=== PATIENT | female | born 1935 | race Caucasian/White ===

== ENCOUNTER → 2023-06-16 08:49 | Outpatient (REF) | payer MEDICARE, SELFPAY | LOC: RAD 08:49 | PROVIDERS: ATTENDING PHYSICIAN Nurse Practitioner | DX: Z86.73 Personal history of transient ischemic attack (TIA), and cerebral infarction without residual deficits (principal); R55 Syncope and collapse | CPT/HCPCS: 93880 ==

== ENCOUNTER → 2023-07-09 10:09 | Outpatient (REF) | payer MEDICARE, SELFPAY | LOC: RAD 10:09 | PROVIDERS: ATTENDING PHYSICIAN Specialist; FAMILY PHYSICIAN Nurse Practitioner | DX: N20.0 Calculus of kidney (principal) | CPT/HCPCS: 74018 ==

== ENCOUNTER 2023-09-14 18:58 | Emergency (ER) | payer MEDICARE, SELFPAY ==
[2023-09-14 18:59] VITALS: BP 165/99
[2023-09-14 19:22] VITALS: BMI 24.6
[2023-09-14] MEDS: ADACEL 0.5 ML IM (19:24)
--- NOTE | 2023-09-14 19:31 | ED.SKININJ ---
HPI-Injury
General
Chief Complaint: Bite
Source: patient
Exam Limitations: none
Time Seen by Provider: 09/14/23 19:18
Travel History
Have you had any contact with someone who has COVID-19?: No
Do you have any symptoms of coronavirus? Fever > 100 degrees, chills, cough, shortness of breath, sore throat, loss of taste or smell, muscle aches, or headache?: No
History of Present Illness-Injury
Initial Injury comments:
See MDM
Past History
Past History
ED Past Medical History: CVA (TIA, ICH), HTN and Other (Crohn's disease)
ED Past Surgical History: Appendectomy, Bowel resection, Cholecystectomy, Tonsilectomy and Other
Social History
Tobacco: Non-smoker
Alcohol: None
Drug: None
Personal:
Living: alone
Employment: Retired
Family History
Family History: Other (Noncontributory)
Phy Exam
Physical Exam
Physical Exam:
See MDM
Course
Orders/Labs/Results
Orders:
Orders
09/14/23 19:15
Tetanus/Diphth/Acelpertussis [Adacel] 0.5 ml IM .ONCE ONE
Vital Signs
Initial and Last Documented VS:
Initial Vital Signs
Temp Pulse Resp BP Pulse Ox
98 F 112 20 165/99 96
09/14/23 18:59 09/14/23 18:59 09/14/23 18:59 09/14/23 18:59 09/14/23 18:59
Last Documented Vital Signs
Temp Pulse Resp BP Pulse Ox
98 F 112 20 165/99 96
09/14/23 18:59 09/14/23 18:59 09/14/23 18:59 09/14/23 18:59 09/14/23 18:59
MDM/Problems Addressed
Differential Diagnosis Includes:
HPI and MDM Narrative:
88-year-old female presenting for evaluation of a snakebite. Patient lives in [place] and she heard something rustling in a bag in her kitchen. She noticed that it was a snake. She tried to grab the snake and it bit her on her left ring finger
along the dorsal aspect of the MCP. Patient denies any bleeding, swelling or numbness. Patient denies any complaints. She did catch the snake eventually and took a picture of it. They came to the emergency department because it did not appear to
look like a normal Garden snake.
I did evaluate the picture of the snake. It had a round head with round eyes. It had a color variation that was similar to northern milk snake. Given that she has no complaints, we discussed the likelihood of a nonvenomous snake and indicating
that she does not need antivenom.
Physical exam
General: Well appearing and non-toxic
HEENT: protecting airway
Neck: appears supple
CV: No evidence of cyanosis
Resp: No accessory muscle use
Abd: Non-distended
Extremities: Snakebite to dorsum of left. No oozing at the bite site
Neuro: alert
Psych: Normal affect
Skin: Intact
Problems Addressed including Acute and Chronic Conditions affecting care:
1. [Snakebite
Acuity: acute
Prognosis: stable
Details: Given no symptoms and evaluating the picture provided by the patient, the snake shows no concerning features for venomous snake. Antivenom not needed. Patient given tetanus shot
Differential Diagnosis (but not limited to): Snakebite nonvenomous, snakebite venomous
Testing considered: X-ray
Drug therapy (if applicable): OTC meds, please see d/c instruction regarding Rx drugs
Amount and/or Complexity of Data Reviewed
Clinical info obtained from: Patient
External data reviewed: N/A
Labs I independently reviewed (but not limited to): N/A
Radiology: N/A
Pulse Ox: not hypoxic
EKG independently reviewed: N/A
Licensing Specialist: N/A
Critical Care: N/A
Risk of Complication:
Social Determinants of health: Good social support
Discussed with other providers: N/A
Escalation of Care includes Admit/Obs: After being observed in the Emergency Department, pt stable for discharge.
Occasional wrong word or 'sound a like' substitutions may have occurred due to the inherent limitations of voice recognition software. Read the chart carefully and recognize, using context, where substitutions have occurred.
*Critical Care Note
Total Time (30-74mins, 75-104mins- exclusive of procedures): Not Applicable
ED Attending Note
-
Portions of this chart may have been created with voice recognition software.� Occasional wrong word or��sound alike� substitutions may have occurred due to the inherent limitations of voice recognition software.
Discharge Plan
Departure
Patient Disposition: Home (Routine Discharge)
Date of Disposition: 09/14/23
Time of Disposition: 19:41
Patient with high blood pressure during this ER visit?: Yes
Discharge Problem:
Bite, snake, non-venomous
Instructions: Snake Bite, BLOOD PRESSURE
Prescriptions:
No Action
hydrochlorothiazide 12.5 MG capsule
12.5 mg PO DAILY
famotidine 40 mg Tablet
40 mg PO HS
cyanocobalamin (vitamin B-12) [Vitamin B-12] 1,000 mcg Tablet
1,000 mcg PO MOTH
simvastatin 20 mg Tablet
20 mg PO QPM
ferrous sulfate 325 mg (65 mg iron) Tablet
325 mg PO DAILY
aspirin 81 mg Tablet,Delayed Release (Dr/Ec)
81 mg PO DAILY
acetaminophen 650 mg Tablet Extended Release
1,300 mg PO PRN PRN (Reason: pain)
Prolia 60 mg/mL Syringe
60 mg SC [id number]
therapeutic multivitamin Tablet
1 tab PO DAILY
calcium carbonate 600 mg calcium (1,500 mg) Tablet
600 mg PO DAILYPRN PRN (Reason: osteoporosis)
cholecalciferol (vitamin D3) [Vitamin D3] 25 mcg (1,000 unit) Tablet
7,000 unit PO DAILY
Activity Restrictions/Additional Instructions:
As we discussed, the snake appears to be an eastern milk snake. Given that you have no symptoms at the bite and there is no oozing to suggest envenomation, you do not require antivenom.
Watch for signs of infection: fever over 100.5', increasing pain, red streaks around wound, swelling, or increasing drainage of pus. If any of these happen, return to ED promptly.
Please return for any worsening symptoms.
You may return at any time if you have further concerns.
Please follow up with your doctor at the first available appointment, preferably this week.
Thank you for choosing [facility].
Interventions
Interventions:
*Risk Screen - Suicide Last Done: 09/14/23 18:59
*General Assessment Last Done: 09/14/23 18:59
*Neglect/Abuse Screening Last Done: 09/14/23 18:59
ED- Fall Risk Assessment Last Done: 09/14/23 19:28
*ED COVID-19 Vaccine History Last Done: 09/14/23 19:07
ED-Skin Assessment Last Done: 09/14/23 19:28
Discharge Date and Time
Print Language: GERMAN
[2023-09-14 19:39] VITALS: BP 157/76
== END 2023-09-14 19:49 | disposition home or self-care (01) ==
LOC: EMR 18:58
PROVIDERS: EMERGENCY PHYSICIAN Student in an Organized Health Care Education/Training Program; FAMILY PHYSICIAN Nurse Practitioner
DX: S61.255A Open bite of left ring finger without damage to nail, initial encounter (principal); W59.11XA Bitten by nonvenomous snake, initial encounter; I10 Essential (primary) hypertension; Z23 Encounter for immunization
CPT/HCPCS: 99283; 90471; 90715

== ENCOUNTER → 2023-09-27 16:16 | Outpatient (REF) | payer OTHER, SELFPAY | LOC: RAD 16:16 | PROVIDERS: ATTENDING PHYSICIAN Nurse Practitioner Family | DX: M79.652 Pain in left thigh (principal) | CPT/HCPCS: 73552 ==

== ENCOUNTER → 2023-11-01 09:39 | Outpatient (REF) | payer MEDICARE, SELFPAY ==
[2023-11-01 11:20] LABS: % Basophils 0.4 % (0-2); % Eosinophils 0.5 % (0-6); % Immature Granulocytes 0.3 % (0-0.5); % Lymphocytes 16.9 % (20.5-51.1); % Neutrophils 72.9 % (42.2-75.2); Absolute Lymphocytes 1.3 10^3/uL (1.2-3.4); Absolute Monocytes 0.7 10^3/uL (0.1-0.6); Absolute Neutrophils 5.6 10^3/uL (1.4-6.5); Hematocrit 42.6 % (37.0-47.0); Hemoglobin 13.3 g/dL (12.0-16.0); Mean Corp Hgb Conc. 31.2 g/dL (33.0-37.0); Mean Corpuscular Hgb 29.4 pg (27.0-31.0); Mean Platelet Volume 11.1 fL (7.4-10.4); Nucleated Red Blood Cells % 0 %; Platelet Count 199 10^3/uL (130-400); Red Blood Cell Count 4.53 10^6/uL (4.20-5.40); Red Cell Dist. Width 13.3 % (11.5-14.5); White Blood Cell Count 7.7 10^3/uL (4.8-10.8)
[2023-11-01 11:46] LABS: ALT (SGPT) 44 U/L (0-35); AST (SGOT) 46 U/L (14-36); Albumin 4.5 g/dl (3.5-5.0); Alkaline Phosphatase 87 U/L (38-126); Blood Urea Nitrogen 14 mg/dl (7-17); Calcium 10.4 mg/dl (8.4-10.2); Carbon Dioxide 29 mmol/L (22-30); Chloride 102 mmol/L (98-107); Glucose 98 mg/dl (70-99); HDL Cholesterol 60 mg/dl; LDL Cholesterol, Calculated 50 mg/dl; Potassium 3.5 mmol/L (3.5-5.1); Sodium 141 mmol/L (135-145); Total Bilirubin 0.9 mg/dl (0.2-1.3); Total Cholesterol 139 mg/dl (50-199); Total Protein 7.1 g/dl (6.3-8.2); Triglyceride 149 mg/dl (10-149); Very Low Density Lipoprotein 29 mg/dl (0-30); eGFR > 60.00
[2023-11-01 11:58] LABS: Total Iron Binding Capacity 397 ug/dl (265-497)
[2023-11-01 12:11] LABS: Vitamin D, 25-OH*** 26.9 ng/mL (30-80)
[2023-11-01 12:22] LABS: Ferritin 27.8 ng/ml (11.1-264.0)
[2023-11-01 12:25] LABS: TSH 2.56 uIU/ml (0.47-4.68)
[2023-11-01 12:45] LABS: Vitamin B12 622 pg/ml (239-931)
[2023-11-01 14:39] LABS: Lyme Antibody Screen, EIA Negative (Negative)
[2023-11-03 18:20] LABS: Ehrlichia chaffeensis IgG Ab <1:64 (<1:64); Ehrlichia chaffeensis IgM Ab < 1:16 (< 1:16)
[2023-11-03 22:50] LABS: Babesia microti IgG < 1:16 (< 1:16); Babesia microti IgM <1:20 (<1:20)
== END ==
LOC: REG 09:39
PROVIDERS: ATTENDING PHYSICIAN Physician Assistant; FAMILY PHYSICIAN Nurse Practitioner
DX: S80.862A Insect bite (nonvenomous), left lower leg, initial encounter (principal); D51.3 Other dietary vitamin B12 deficiency anemia; K50.00 Crohn's disease of small intestine without complications; L65.9 Nonscarring hair loss, unspecified; E78.2 Mixed hyperlipidemia; E55.9 Vitamin D deficiency, unspecified
CPT/HCPCS: 36415; 80053; 80061; 82306; 82607; 82728; 83550; 84443; 85025; 86618; 86666; 86753

== ENCOUNTER → 2023-12-28 09:45 | Outpatient (REF) | payer MEDICARE, SELFPAY | LOC: RAD 09:45 | PROVIDERS: ATTENDING PHYSICIAN Internal Medicine Rheumatology; FAMILY PHYSICIAN Nurse Practitioner | DX: M81.0 Age-related osteoporosis without current pathological fracture (principal) | CPT/HCPCS: 77080 ==

== ENCOUNTER → 2024-06-05 15:27 | Outpatient (REF) | payer MEDICARE, SELFPAY | LOC: RAD 15:27 | PROVIDERS: ATTENDING PHYSICIAN Nurse Practitioner | DX: J06.9 Acute upper respiratory infection, unspecified (principal) | CPT/HCPCS: 71046 ==

== ENCOUNTER 2024-06-10 19:29 | Inpatient (IN) | payer MEDICARE, SELFPAY ==
[2024-06-10 16:03] VITALS: BP 164/88
[2024-06-10 16:17] LABS: % Basophils 0.4 % (0-2); % Eosinophils 0.7 % (0-6); % Immature Granulocytes 0.3 % (0-0.5); % Monocytes 12.4 % (1.7-9.3); % Neutrophils 71.2 % (42.2-75.2); Absolute Eosinophils 0.1 10^3/uL (0-0.7); Absolute Lymphocytes 1.1 10^3/uL (1.2-3.4); Absolute Monocytes 0.9 10^3/uL (0.1-0.6); Hematocrit 38.2 % (37.0-47.0); Hemoglobin 12.5 g/dL (12.0-16.0); Mean Corp Hgb Conc. 32.7 g/dL (33.0-37.0); Mean Corpuscular Hgb 28.9 pg (27.0-31.0); Mean Corpuscular Volume 88.4 fL (81.0-99.0); Mean Platelet Volume 10.1 fL (7.4-10.4); Nucleated Red Blood Cells % 0 %; Platelet Count 236 10^3/uL (130-400); Red Blood Cell Count 4.32 10^6/uL (4.20-5.40); Red Cell Dist. Width 12.6 % (11.5-14.5); White Blood Cell Count 7.1 10^3/uL (4.8-10.8)
[2024-06-10 16:37] LABS: ALT (SGPT) 22 U/L (0-35); AST (SGOT) 27 U/L (14-36); Albumin 4.2 g/dl (3.5-5.0); Alkaline Phosphatase 70 U/L (38-126); Blood Urea Nitrogen 10 mg/dl (7-17); Calcium 9.9 mg/dl (8.4-10.2); Carbon Dioxide 32 mmol/L (22-30); Chloride 97 mmol/L (98-107); Glucose 109 mg/dl (70-99); Potassium 2.7 mmol/L (3.5-5.1); Sodium 137 mmol/L (135-145); Total Bilirubin 0.6 mg/dl (0.2-1.3); eGFR > 60.00
[2024-06-10 16:38] LABS: COVID-19 Antigen Negative (Negative)
--- NOTE | 2024-06-10 18:55 | ED.GENMED ---
History of Present Illness
General
Chief Complaint: Cold/Flu/URI Symptoms
Source: patient and family
Time Seen by Provider: 06/10/24 17:42
History of Present Illness
History of Present Illness:
This an 88-year-old female who presents with 1 week of persistent cough. Reports a little bit of shortness of breath. Was given amoxicillin has been on that for about 6 days. Patient reports her symptoms seem to be getting worse. On my
evaluation does not feel short of breath. No chest pain. No hemoptysis. Has had some low-grade temperatures. Temperature on my evaluation is 99.1. Daughter states her normal temperature is around 97.5. Daughter also states her cough just is
not getting better
Past History
Past History
ED Past Medical History: CVA (TIA, ICH), HTN and Other (Crohn's disease)
ED Past Surgical History: Appendectomy, Bowel resection, Cholecystectomy, Tonsilectomy and Other
Social History
Tobacco: Non-smoker
Alcohol: None
Drug: None
Personal:
Living: alone
Employment: Retired
Family History
Family History: Other (Noncontributory)
Phy Exam
Physical Exam
Physical Exam:
CONSTITUTIONAL Patient alert and oriented to person, place and time. Well-appearing. Vital signs reviewed.
HEAD atraumatic, normocephalic.
EYES eyelids normal to inspection, Extraocular muscles intact, Conjunctiva normal, Sclera normal.
NECK normal range of motion, Trachea midline, no jugular venous distention.
RESPIRATORY CHEST No respiratory distress noted, Chest expansion equal, few scattered rhonchi.
CARDIOVASCULAR regular rate and rhythm, Heart sounds normal.
ABDOMEN abdomen nontender, Bowel sounds normal. No distention.
BACK normal inspection, no obvious deformities
UPPER EXTREMITY range of motion normal, Motor strength normal, no cyanosis, no edema.
LOWER EXTREMITY range of motion normal, Motor strength normal, no cyanosis, no edema.
NEURO Speech normal, No focal motor deficits, Andrew coma scale 15, Memory normal, Cranial Nerves intact to screening exam.
SKIN skin warm, dry, and normal in color.
Course
Orders/Labs/Results
Orders:
Orders
06/10/24 Dinner
Regular
At Your Request: Full Participation
06/10/24 16:06
CXR2 [CR Chest - 2 Views ] Urgent
Comment:
Reason For Exam: uri s/s
06/10/24 16:11
COVID-19 Antigen Urgent
Source: Nasal Swab
Complete Blood Count/With Diff Urgent
Comprehensive Metabolic Panel Urgent
Magnesium Urgent
Comment: ADDON
Influenza A+B Rapid Molecular Urgent
SHANNAN Source: Nasal Swab
Specimen Description:
06/10/24 18:08
0.9% Sodium Chloride 500 ml [Nss] 500 ml IV BOLUS
06/10/24 18:09
Electrocardiogram (*1) Urgent
Reason for Study: Other
Other Reason for Exam: hypokalemia
06/10/24 18:10
Azithromycin 500 mg/250 ml [Zithromax Infusion] 500 mg in 250 ml IV NOW
CefTRIAXone [Rocephin] 1,000 mg IV NOW STA
Potassium Chloride 10% Elixir [KCl Elixir] 40 meq PO NOW STA
06/10/24 18:54
Lactic Acid Q4H
Comment: CANCEL 2nd LACTIC ACID IF 1st LACTIC ACID IS LESS THAN 2
Blood Culture Q30M
SHANNAN Source: Blood/Venous
Specimen Description:
Blood Culture Q30M
SHANNAN Source: Blood/Venous
Specimen Description:
06/10/24 19:04
Potassium Chloride [KCl] 40 meq 0.9% Sodium Chloride 250 ml [Nss] 250 ml IV NOW
06/10/24 19:09
Admit/Transfer Patient As Directed
Co-Sign Provider:
Level of Care: Inpatient admission
Assign to:: Medical/Surgical
Physician / Group: lenin
Diagnosis: pneumonia
Reason for Hospitalization: pneumonia
Expected length of stay greater than two midnights?: Yes
ELOS- Estimated Length of Stay in days: 2
I certify the patient meets the requirements for IP care: Yes
Code Status As Directed
Resuscitation Status: Full Code
PRN Pain Medication Management As Directed
May give lesser potent ordered pain med per pt: Yes
preference::
Protocol:: Medication orders for pain may be administered in a
manner that supports deferring to patient preference
when the pt is:
- Requesting an ordered lesser potent pain medication.
Least to most potent pain medications are defined
as: acetaminophen < NSAID < tramadol < opioids
(morphine, oxycodone, hydromorphone).
- Requesting a lesser dose of the same medication IF
ORDERED.
- Requesting a less intrusive route of administration
if both routes are prescribed by the provider (PO <
IV).
06/10/24 19:14
Code Status As Directed
Resuscitation Status: Do not resuscitate
Reached after discussion with pt or family/Healthcare POA: Yes
Respiratory Culture/Gram Stain Urgent
SHANNAN Source: Sputum
Specimen Description:
06/10/24 19:15
DNR Bracelet Application ONCE
06/10/24 20:48
Acetaminophen [Tylenol] 650 mg PO Q4HPRN PRN
Heparin 5,000 units SC Q12
06/10/24 20:48
Activity As Directed
Activity Level: As Tolerated
Vital Signs As Directed
Frequency: Per unit guidelines
DX Deep Vein Thrombosis Video Routine
06/10/24 21:36
Norovirus by PCR Urgent
SHANNAN Source: Feces/Stool
Specimen Description:
Date Specimen was Collected: 06/10/24
Time Specimen was Collected: 21:32
STOOL [C difficile Antigen & Toxins] Urgent
SHANNAN Source: Feces/Stool
Specimen Description:
Date Specimen was Collected: 06/10/24
Time Specimen was Collected: 21:32
Stool Culture Urgent
SHANNAN Source: Feces/Stool
Specimen Description:
Date Specimen was Collected: 06/10/24
Time Specimen was Collected: 21:32
06/10/24 22:00
Famotidine [Pepcid] 40 mg PO HS
06/11/24 06:00
Complete Blood Count/With Diff IN AM
Comprehensive Metabolic Panel IN AM
06/11/24 08:00
Aspirin Low Dose EC [Aspir Low (Enteric Coated)] 81 mg PO DAILY
Cholecalciferol (Vitamin D3) [VITAMIN D3 (cholecalciferol)] 187.5 mcg PO DAILY
Escitalopram Oxalate [Lexapro] 5 mg PO DAILY
Ferrous Sulfate [Feosol] 325 mg PO DAILY
06/11/24 12:00
Magnesium Oxide 250 mg PO DAILY@1200
06/11/24 18:00
Atorvastatin [Lipitor] 10 mg PO QPM
Azithromycin 500 mg/250 ml [Zithromax Infusion] 500 mg in 250 ml IV Q24H
CefTRIAXone [Rocephin] 1,000 mg IV Q24H
06/12/24 08:00
Cyanocobalamin [Vitamin B-12] 1,000 mcg PO MoTh@0800
Abnormal Lab Results
06/10/24
16:11
MCHC 32.7 L g/dL
(33.0-37.0)
Absolute Lymphs (auto) 1.1 L 10^3/uL
(1.2-3.4)
Absolute Monos (auto) 0.9 H 10^3/uL
(0.1-0.6)
Lymphocytes % 15.0 L %
(20.5-51.1)
Monocytes % 12.4 H %
(1.7-9.3)
Potassium 2.7 L* mmol/L
(3.5-5.1)
Chloride 97 L mmol/L
(98-107)
Carbon Dioxide 32 H mmol/L
(22-30)
Creatinine 0.5 L mg/dL
(0.6-1.0)
Glucose 109 H mg/dl
(70-99)
06/10/24 16:11
06/10/24 16:11
Vital Signs
Initial and Last Documented VS:
Initial Vital Signs
Temp Pulse Resp BP Pulse Ox
98.8 F 96 18 164/88 96
06/10/24 16:03 06/10/24 16:03 06/10/24 16:03 06/10/24 16:03 06/10/24 16:03
Last Documented Vital Signs
Temp Pulse Resp BP Pulse Ox
98.2 F 62 16 125/62 93
06/10/24 23:35 06/10/24 23:35 06/10/24 23:35 06/10/24 23:35 06/10/24 23:35
MDM/Problems Addressed
Differential Diagnosis Includes:
Bronchitis, viral syndrome, pneumonia, sepsis
MDM/Problems Addressed:
Pneumonia, outpatient about failure, acute severe hypokalemia, dehydration
*Radiology
Radiology exam reviewed: radiology read reviewed
*Pulse Oximetry
Patient hypoxic: no
*EKG
Interpreted by ED Provider?: Yes
Interpretation: abnormal
Rate: normal
Rhythm: sinus
QRS Pattern: poor R-wave progression
Ischemia: no ischemia
*Escapement Matcher Interpretation
Rate: normal
Interpretation: normal
Rhythm: sinus
*Critical Care Note
Total Time (30-74mins, 75-104mins- exclusive of procedures): Not Applicable
Data Reviewed
Source: patient and family
Further Testing Considered But Not Given:
Consider chest CT but suspect pneumonia by chest x-ray
Patient Management
Discussion with other providers: Hospitalist
Escalation/DeEscalation of care consider admission/obs:
88-year-old female presents with persistent cough. Found to be severely hypokalemic which is likely combination of her stool change as well as her hydrochlorothiazide. IV antibiotics. Admit given outpatient antibiotic failure. Pulse ox has
remained okay.
ED Attending Note
-
Portions of this chart may have been created with voice recognition software.� Occasional wrong word or��sound alike� substitutions may have occurred due to the inherent limitations of voice recognition software.
Discharge Plan
Departure
Patient Disposition: Admit
Date of Disposition: 06/10/24
Time of Disposition: 18:55
Admit to: Telemetry
Presentation/result/management discussed w/ accepting MD/DO: Hospitalist
Discharge Problem:
Pneumonia, Acute hypokalemia, outpatient antibiotic failure
Interventions
Interventions:
*Risk Screen - Suicide Last Done: 06/10/24 16:03
*Neglect/Abuse Screening Last Done: 06/10/24 16:03
ED- Fall Risk Assessment Last Done: 06/10/24 20:49
*ED COVID-19 Vaccine History Last Done: 06/10/24 21:20
*Nursing Disposition Last Done: 06/10/24 21:17
ED- Pulmonary Assessment Last Done: 06/10/24 20:49
Discharge Date and Time
Discharge Date/Time: 06/10/24 21:18
--- NOTE | 2024-06-10 19:13 | HPS.HSE ---
Family Physician
-
Family Physician: JOSSELYN Muniz
Chief Complaint
-
cough
History of Present Illness
88-year-old female past medical history of Crohn's disease, hypertension, CVA, GERD, thyroid goiter status post removal, iron deficiency, osteoporosis, osteoarthritis, nephrolithiasis presenting with productive cough and shortness of breath for the
past 2 and half weeks. She has been having runny nose. She denies any fevers or chills. She had loss of taste. Denies nausea or vomiting.
She started taking amoxicillin 6 days ago but was not improving so was told to come to the emergency room. She has been having severe watery diarrhea since starting the amoxicillin.
Denies smoking or alcohol use.
Medical History
Past Medical History
Past Medical History: Reports Other (Crohn's disease, hypertension, CVA, GERD, thyroid goiter status post removal, iron deficiency, osteoporosis, osteoarthritis, nephrolithiasis)
Past Surgical History: Reports Other ( Appendectomy, Bowel resection, Cholecystectomy, Tonsilectomy and Other)
Social History
Tobacco: Non-smoker
Alcohol: None
Drug: None
Family History
Family History: Not pertinent
Allergies / Home Medications
Allergies reflects when Allergies were last updated in [facility].
Home Medications with original date entered in [facility]
Allergy/Medication List:
Allergies
Allergy/AdvReac Type Severity Reaction Status Date / Time
Horse/Equine Containing Allergy LOC Verified 06/10/24 16:05
Products
iodine [Iodine] Allergy Hives Verified 06/10/24 16:05
ragweed pollen Allergy SNEEZING Verified 06/10/24 16:05
shellfish derived Allergy Hives Verified 06/10/24 16:05
Tetanus Vaccines and Toxoid Allergy Unknown Verified 06/10/24 16:05
shellfish with mayonnaise Allergy Hives Uncoded 06/10/24 16:05
Home Medications
hydrochlorothiazide 12.5 mg capsule 12.5 mg PO DAILY Blood Pressure 04/10/08
cyanocobalamin (vitamin B-12) 1,000 mcg tablet (Vitamin B-12) 1,000 mcg PO MOTH Supplement 03/11/23
famotidine 40 mg tablet 40 mg PO HS Gastrointestinal Issue 03/11/23
ferrous sulfate 325 mg (65 mg iron) tablet 325 mg PO DAILY Supplement 03/11/23
simvastatin 20 mg tablet 20 mg PO QPM High Cholesterol 03/11/23
acetaminophen 650 mg tablet,extended release 1,300 mg PO DAILYPRN PRN MILD pain 03/31/23
aspirin 81 mg tablet,delayed release 81 mg PO DAILY Blood Clot Prevention/Tx 03/31/23
denosumab 60 mg/mL subcutaneous syringe (Prolia) 60 mg SC [id number] osteoporosis 03/31/23
cholecalciferol (vitamin D3) 25 mcg (1,000 unit) tablet (Vitamin D3) 7,000 unit PO DAILY Supplement 04/05/23
therapeutic multivitamin 1 tab PO DAILY Supplement 04/05/23
escitalopram oxalate 5 mg tablet (Lexapro) 5 mg PO DAILY 06/10/24
magnesium oxide 250 mg PO DAILY 06/10/24
Review of Systems
-
History Source: Patient
A 12 point ROS was completed and negative except as noted: Yes
Constitutional: Reports No Symptoms
EENT: Reports No Symptoms
Respiratory: Reports No Symptoms
Cardiac: Reports No Symptoms
Abdomen/GI: Reports No Symptoms
: Reports No Symptoms
Musculoskeletal: Reports No Symptoms
Skin: Reports No Symptoms
Neurological: Reports No Symptoms
Endocrine: Reports No Symptoms
Hematologic/Lymphatic: Reports No Symptoms
Psych: Reports No Symptoms
Physical Exam
Vital Signs
Vital Signs
Temp Pulse Resp BP Pulse Ox
98.8 F 96 18 164/88 96
06/10/24 16:03 06/10/24 16:03 06/10/24 16:03 06/10/24 16:03 06/10/24 16:03
Physical Exam
General: Well Developed, Well Nourished and No Apparent Distress
HEENT: NormoCephalic, Moist mucous membranes and Atraumatic
Respiratory: Clear
Cardiac: S1/S2 and Regular Rhythm; No Murmur or Rub
GI: Soft, Non Tender, Non Distended and Normal Bowel Sounds; No Organomegaly
Rectal: Deferred by Provider
Musculoskeletal: No Clubbing, No Cyanosis and No Edema
Skin: No Rash
Neuro: Nonfocal/grossly intact
Laboratory Results
-
06/10/24 16:11
06/10/24 16:11
Laboratory Results
Total Bilirubin 0.6 mg/dl (0.2-1.3) 06/10/24 16:11
AST 27 U/L (14-36) 06/10/24 16:11
ALT 22 U/L (0-35) 06/10/24 16:11
Alkaline Phosphatase 70 U/L (38-126) 06/10/24 16:11
Data Reviewed
-
Lab Data: Labs Reviewed by me
Old Records: Reviewed
Impression/Plan
-
IMPRESSION:
PLAN:
# Left lower lobe pneumonia
-IV fluids given
-COVID and influenza negative
-Sputum culture
-Ceftriaxone/azithromycin
# Severe hypokalemia secondary to acute antibiotic related diarrhea
-Check stool studies, C. difficile
-Replete potassium
-Check magnesium
-Hold hydrochlorothiazide
Crohn's disease
Essential hypertension
-Hold hydrochlorothiazide
CVA
-Continue aspirin, statin
GERD
-Continue famotidine
Thyroid goiter status post removal
Iron deficiency
-Continue ferrous sulfate
Osteoporosis
Osteoarthritis
Anxiety/depression
-Continue Lexapro
DNR/DNI
DVT prophylaxis�heparin
Regular diet
[2024-06-10 19:15] LABS: Lactic Acid 1.1 mmol/L (0.7-2.0)
[2024-06-10] MEDS: NSS 500 IV (19:22)
[2024-06-10] MEDS: ROCEPHIN 1000 MG IV (19:23)
[2024-06-10] MEDS: ZITHROMAX INFUSION 250 IV (19:25)
[2024-06-10] MEDS: KCL ELIXIR 40 MEQ PO (19:27)
[2024-06-10 20:34] LABS: Magnesium 1.9 mg/dl (1.6-2.3)
[2024-06-10 20:55] VITALS: BP 159/83; BMI 24.5
[2024-06-10] MEDS: ZITHROMAX INFUSION IV (21:25)
[2024-06-10] MEDS: HEPARIN 5000 UNITS SC (22:09)
[2024-06-10] MEDS: PEPCID 40 MG PO (22:09)
[2024-06-10] MEDS: KCL 270 MEQ IV (22:18)
--- NOTE | 2024-06-10 22:44 | TRANSFER ---
Received patient from ED via stretcher; Medsurg order> afebrile, HR 81, RR 16, BP 148/49, pox 96% room air. No c/o pain. AAOx3. IV Abx infusing per through [facility] int. PMH and medications reviewed by this RN and patient. Plan of care discussed. Patient
oriented to room, call chadwick within reach.
[2024-06-10 23:35] VITALS: BP 125/62
[2024-06-11 07:00] VITALS: BP 137/78
[2024-06-11 07:17] LABS: % Basophils 0.5 % (0-2); % Eosinophils 1.6 % (0-6); % Immature Granulocytes 0.4 % (0-0.5); % Lymphocytes 18.1 % (20.5-51.1); % Monocytes 14.4 % (1.7-9.3); Absolute Eosinophils 0.1 10^3/uL (0-0.7); Absolute Monocytes 0.8 10^3/uL (0.1-0.6); Absolute Neutrophils 3.6 10^3/uL (1.4-6.5); Hematocrit 31.5 % (37.0-47.0); Hemoglobin 10.4 g/dL (12.0-16.0); Mean Corpuscular Hgb 29.1 pg (27.0-31.0); Nucleated Red Blood Cells % 0 %; Platelet Count 196 10^3/uL (130-400); Red Blood Cell Count 3.58 10^6/uL (4.20-5.40); Red Cell Dist. Width 12.7 % (11.5-14.5); White Blood Cell Count 5.6 10^3/uL (4.8-10.8)
[2024-06-11 07:53] LABS: ALT (SGPT) 16 U/L (0-35); AST (SGOT) 22 U/L (14-36); Alkaline Phosphatase 56 U/L (38-126); Blood Urea Nitrogen 6 mg/dl (7-17); Calcium 8.8 mg/dl (8.4-10.2); Carbon Dioxide 27 mmol/L (22-30); Chloride 105 mmol/L (98-107); Estimated Creatinine Clearance 54 ml/min; Glucose 87 mg/dl (70-99); Potassium 2.9 mmol/L (3.5-5.1); Sodium 140 mmol/L (135-145); Total Bilirubin 0.5 mg/dl (0.2-1.3); Total Protein 5.3 g/dl (6.3-8.2); eGFR > 60.00
--- NOTE | 2024-06-11 09:09 | W.PN.HOSP.TC ---
Today's Communication/Plan
-
Resume HCTZ
Add PRN Hydralazine for high blood pressure
Replace K aggressively, IV & Orally
c/w Antibiotics
Test stool for C Diff, if negative, ok to use Imodium
Assessment / Plan
Assessment / Plan
Physical Exam
General: No Apparent Distress
HEENT: Normocephalic Moist mucous membranes and Atraumatic
Respiratory: I did not appreciate crackles or wheezes.
Cardiac: S1/S2
GI: Soft, Non Tender, Non Distended and Normal Bowel Sounds;
Rectal: No rectal bleeding.
Musculoskeletal: No Clubbing, No Cyanosis and No Edema
Skin: No Rash
Neuro: Nonfocal/grossly intact
Psych: no agitation, pleasant, calm.
# Left lower lobe pneumonia
-Still with dry cough
No hypoxia
- f/w blood culture
-COVID and influenza negative
-Ceftriaxone/azithromycin
# Severe hypokalemia secondary to GI loss, she had acute antibiotic related diarrhea
-Check stool studies, C. difficile
-Replete potassium, will do oral & IV replacement.
-Magnesium 1.9
- Resume hydrochlorothiazide
# Crohn's disease
Essential hypertension
Uncontrolled.
- Resume hydrochlorothiazide
Add PRN oral hydralazine.
CVA
-Continue aspirin, statin
GERD
-Continue famotidine
Thyroid goiter status post removal
Iron deficiency
-Continue ferrous sulfate
Osteoporosis
Osteoarthritis
Anxiety/depression
-Continue Lexapro
DNR/DNI
DVT prophylaxis�heparin
Regular diet
Total time spent to see the patient, examine the patient, review data and lab results, discuss treatment plan with patient, nursing staff around 55 minutes
Anticipated Discharge: 24 - 48 hours
Subjective/Interval History
-
Date of Service: June 11, 2024
She feels better
Still dry cough
Objective Data
-
Labs:
Laboratory Results
06/11/24
07:04
WBC 5.6
Hgb 10.4 L
Hct 31.5 L
Plt Count 196
Sodium 140
Potassium 2.9 L
Chloride 105
Carbon Dioxide 27
BUN 6 L
Creatinine 0.4 L
Glucose 87
Calcium 8.8
Total Bilirubin 0.5
AST 22
ALT 16
Alkaline Phosphatase 56
Vital Signs:
Vital Signs
Temp Pulse Resp BP Pulse Ox
98.2 F 68 18 137/78 95
06/11/24 07:00 06/11/24 07:00 06/11/24 07:00 06/11/24 07:00 06/11/24 07:00
I&O
06/10/24 06/11/24 06/12/24
06:59 06:59 06:59
Intake Total 750 / 750
Balance 750 / 750
[2024-06-11] MEDS: ASPIR LOW (ENTERIC COATED) 81 MG PO (09:18)
[2024-06-11] MEDS: LEXAPRO 5 MG PO (09:18)
[2024-06-11] MEDS: FEOSOL 325 MG PO (09:18)
[2024-06-11] MEDS: KCL ELIXIR 40 MEQ PO (09:19)
[2024-06-11] MEDS: VITAMIN D3 (cholecalciferol) 187.5 MCG PO (09:19)
[2024-06-11] MEDS: HEPARIN 5000 UNITS SC ×2 (09:19→19:24)
[2024-06-11] MEDS: ORETIC 12.5 MG PO (09:37)
[2024-06-11] MEDS: TESSALON PERLES 200 MG PO (09:37)
[2024-06-11] MEDS: KCL 270 MEQ IV ×2 (11:22→16:17)
[2024-06-11] MEDS: MAGNESIUM OXIDE 250 MG PO (11:22)
[2024-06-11 15:00] VITALS: BP 132/60
--- NOTE | 2024-06-11 16:09 | CM ---
CM reviewed records. Patient lives with family. Patient does not have a history of SNF. Patient has has [facility] in the past. Patient is active with her PCP. Patient uses [facility] for medication services.
CM will continue to follow as needed for discharge planning.
[2024-06-11] MEDS: ROCEPHIN 1000 MG IV (17:19)
[2024-06-11] MEDS: LIPITOR 10 MG PO (17:19)
[2024-06-11] MEDS: STERILE WATER FOR INJECTION 10 ML IV (17:19)
[2024-06-11] MEDS: ZITHROMAX INFUSION 250 IV (17:27)
[2024-06-11] MEDS: PEPCID 40 MG PO (22:33)
[2024-06-11 23:15] VITALS: BP 131/64
[2024-06-12 07:44] VITALS: BP 145/86
[2024-06-12 08:52] LABS: Blood Urea Nitrogen 4 mg/dl (7-17); Calcium 9.3 mg/dl (8.4-10.2); Carbon Dioxide 28 mmol/L (22-30); Chloride 102 mmol/L (98-107); Estimated Creatinine Clearance 54 ml/min; Glucose 90 mg/dl (70-99); Magnesium 1.8 mg/dl (1.6-2.3); Potassium 3.5 mmol/L (3.5-5.1); Sodium 138 mmol/L (135-145); eGFR > 60.00
[2024-06-12 08:53] LABS: Hematocrit 35.3 % (37.0-47.0); Hemoglobin 11.5 g/dL (12.0-16.0); Mean Corp Hgb Conc. 32.6 g/dL (33.0-37.0); Mean Corpuscular Volume 89.1 fL (81.0-99.0); Mean Platelet Volume 10.6 fL (7.4-10.4); Platelet Count 238 10^3/uL (130-400); Red Blood Cell Count 3.96 10^6/uL (4.20-5.40); Red Cell Dist. Width 12.8 % (11.5-14.5); White Blood Cell Count 6.6 10^3/uL (4.8-10.8)
[2024-06-12] MEDS: ASPIR LOW (ENTERIC COATED) 81 MG PO (08:57)
[2024-06-12] MEDS: FEOSOL 325 MG PO (08:57)
[2024-06-12] MEDS: VITAMIN D3 (cholecalciferol) 187.5 MCG PO (08:57)
[2024-06-12] MEDS: LEXAPRO 5 MG PO (08:57)
[2024-06-12] MEDS: ORETIC 12.5 MG PO (08:57)
[2024-06-12] MEDS: HEPARIN 5000 UNITS SC (08:59)
--- NOTE | 2024-06-12 09:32 | W.PN.HOSP.TC ---
Addendum entered and electronically signed by Ирина Contreras MD 06/13/24 16:10:
Dictation- [id number]
Addendum entered and electronically signed by Ирина Contreras MD 06/12/24 15:13:
Home oxygen evaluation noted
Discussed with patient's daughter on the phone and updated
Discussed with nursing
More than 30 minutes spent in discharge including
Final examination of the patient
Summarizing hospital stay
Instructions for continuing care to all relevant caregivers
Preparation of discharge records, prescriptions, and referral forms
Total time spent (in minutes): 35 min
Original Note:
Today's Communication/Plan
-
Watch . If feeling Ok will discharge
Home O2 eval
Assessment / Plan
Assessment / Plan
88-year-old female with cough. 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 She also started having diarrhea
Chest x-ray-small patchy left lower lobe opacification suspicious for pneumonia
CVS: S1-S2 normal
Chest: Few rales at the left base
Abdomen: Soft, NT / Bowel sounds present
Extremities: No edema
# Pneumonia-on Zithromax and ceftriaxone will continue with Zithromax at discharge.
# Antibiotic related diarrhea-C. difficile negative. Norovirus negative. Cultures pending
# Hypertension-on hydrochlorothiazide
# Hyperlipidemia-continue simvastatin
# Crohn's disease-has chronic loose stools. Not on any treatment as she states that she is in remission now. Needs outpatient follow-up with GI
# Hypokalemia-resolved
# History of bile resection/gastrectomy
# History of chronic vertigo
# History of CVA
# GERD-continue Pepcid
# Nephrolithiasis
# Anxiety and depression-continue Lexapro
# DVT prophylaxis-Lovenox
# DNR
If feeling better will discharge today.
Discussed with nursing at bedside
Anticipated Discharge: Today
Subjective/Interval History
-
Date of Service: June 12, 2024
Objective Data
-
Labs:
Laboratory Results
06/12/24
07:58
WBC 6.6
Hgb 11.5 L
Hct 35.3 L
Plt Count 238 D
Sodium 138
Potassium 3.5
Chloride 102
Carbon Dioxide 28
BUN 4 L
Creatinine 0.5 L
Glucose 90
Calcium 9.3
Vital Signs:
Vital Signs
Temp Pulse Resp BP Pulse Ox
98.1 F 84 20 145/86 94
06/12/24 07:44 06/12/24 07:44 06/12/24 07:44 06/12/24 07:44 06/12/24 07:44
I&O
06/11/24 06/12/24 06/13/24
06:59 06:59 06:59
Intake Total 750 / 750 1460 / 1460
Balance 750 / 750 1460 / 1460
[2024-06-12] MEDS: KCL ELIXIR PO (09:35)
[2024-06-12] MEDS: MUCINEX 600 MG PO (10:15)
[2024-06-12] MEDS: FLORASTOR 250 MG PO (10:15)
[2024-06-12] MEDS: VITAMIN B-12 1000 MCG PO (10:15)
[2024-06-12] MEDS: MAGNESIUM OXIDE 250 MG PO (11:31)
--- NOTE | 2024-06-12 12:31 | CM ---
CM reviewed chart and dc anticipated for today
Home O2 eval completed- pt does not qualify for O2
Bedside meeting with pt
No dc needs noted
IMM verbally reviewed- copy provided
Dtr will transport home
Discharge Dispositio- home, no needs- dtr transport
[2024-06-12 15:00] VITALS: BP 145/89
--- NOTE | 2024-06-12 15:12 | W.DS.TRANS ---
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
-
Discharge Instructions:
Discharge Diagnosis/Procedures Pneumonia
Diarrhea
Low potassium
Hypertension
Hyperlipidemia
Crohn's disease
Chronic vertigo
History of stroke
GERD
Anxiety
Diet Low Residue
Activity As tolerated
Driving Restrictions As prior to admission
Blood Work BMP 3-4 days
Others Tests Chest X ray in 6 weeks
Other Services VN
Instructions:
Stand-Alone Forms:
Changes to Home Medications: Yes
Discharge Medications:
DC Medications w/original date entered in [employer]
hydrochlorothiazide 12.5 mg capsule 12.5 mg PO DAILY Blood Pressure 04/10/08
cyanocobalamin (vitamin B-12) 1,000 mcg tablet (Vitamin B-12) 1,000 mcg PO MOTH Supplement 03/11/23
famotidine 40 mg tablet 40 mg PO HS Gastrointestinal Issue 03/11/23
ferrous sulfate 325 mg (65 mg iron) tablet 325 mg PO DAILY Supplement 03/11/23
simvastatin 20 mg tablet 20 mg PO QPM High Cholesterol 03/11/23
acetaminophen 650 mg tablet,extended release 1,300 mg PO DAILYPRN PRN MILD pain 03/31/23
aspirin 81 mg tablet,delayed release 81 mg PO DAILY Blood Clot Prevention/Tx 03/31/23
denosumab 60 mg/mL subcutaneous syringe (Prolia) 60 mg SC [id number] osteoporosis 03/31/23
cholecalciferol (vitamin D3) 25 mcg (1,000 unit) tablet (Vitamin D3) 175 mcg PO DAILY Supplement 04/05/23
therapeutic multivitamin 1 tab PO DAILY Supplement 04/05/23
escitalopram oxalate 5 mg tablet (Lexapro) 5 mg PO DAILY Mental Health/Anxiety 06/10/24
azithromycin 500 mg tablet (Zithromax) 500 mg PO DAILY Infection 3 days #3 tabs 06/12/24
guaifenesin 600 mg tablet, extended release 12 hr 600 mg PO Q12 Cough #0 tabs 06/12/24
magnesium chloride 71.5 mg (magnesium chloride) tablet,delayed release (Slow-Mag) 71.5 mg PO DAILY mag #30 tabs 06/12/24
potassium chloride 10 mEq capsule,extended release 10 meq PO DAILY potassium #10 caps 06/12/24
Home Medication Changes
Potassium and Zithromax are new
Mucinex is new
Magnesium changes Slow-Mag from magnesium oxide
Pending Results: Yes
--- NOTE | 2024-06-12 15:28 | PTCARENOTE ---
discharge order noted. d/c instructions printed and explained to the patient, understanding verbalized. patient IV removed and pressure dressing applied. all the belongings gathered and sent with the patient. left with the family member by a w/c
transport
== END 2024-06-12 16:35 | disposition home or self-care (01) | DRG 194 ==
LOC: 1 ACUTE 19:29
PROVIDERS: Emergency Medicine; Internal Medicine; ADMITTING PHYSICIAN Hospitalist; ATTENDING PHYSICIAN Hospitalist; EMERGENCY PHYSICIAN Emergency Medicine; FAMILY PHYSICIAN Nurse Practitioner
DX: J18.9 Pneumonia, unspecified organism (principal); K50.90 Crohn's disease, unspecified, without complications; K52.1 Toxic gastroenteritis and colitis; Z66 Do not resuscitate; E61.1 Iron deficiency; I10 Essential (primary) hypertension; E87.6 Hypokalemia; F32.A Depression, unspecified; F41.9 Anxiety disorder, unspecified; K21.9 Gastro-esophageal reflux disease without esophagitis; T36.8X5A Adverse effect of other systemic antibiotics, initial encounter; E78.5 Hyperlipidemia, unspecified; M81.0 Age-related osteoporosis without current pathological fracture; Z20.822 Contact with and (suspected) exposure to COVID-19; Z86.73 Personal history of transient ischemic attack (TIA), and cerebral infarction without residual deficits; Z79.899 Other long term (current) drug therapy; Z79.82 Long term (current) use of aspirin
CPT/HCPCS: 71046; 80048; 80053; 83605; 83735; 85025; 85027; 87040; 87045; 87046; 87324; 87427; 87449; 87502; 87798; 87811; 93005; 96365; 96375; 99285

== ENCOUNTER → 2024-06-19 12:41 | Outpatient (REF) | payer MEDICARE, SELFPAY ==
[2024-06-19 13:14] LABS: % Basophils 0.2 % (0-2); % Eosinophils 0.6 % (0-6); % Immature Granulocytes 0.3 % (0-0.5); % Lymphocytes 12.6 % (20.5-51.1); % Monocytes 11.2 % (1.7-9.3); % Neutrophils 75.1 % (42.2-75.2); Absolute Eosinophils 0.1 10^3/uL (0-0.7); Absolute Lymphocytes 1.1 10^3/uL (1.2-3.4); Absolute Neutrophils 6.5 10^3/uL (1.4-6.5); Hematocrit 37.7 % (37.0-47.0); Hemoglobin 11.9 g/dL (12.0-16.0); Mean Corp Hgb Conc. 31.6 g/dL (33.0-37.0); Mean Corpuscular Hgb 29.2 pg (27.0-31.0); Mean Corpuscular Volume 92.4 fL (81.0-99.0); Mean Platelet Volume 10.9 fL (7.4-10.4); Nucleated Red Blood Cells % 0 %; Platelet Count 263 10^3/uL (130-400); Red Blood Cell Count 4.08 10^6/uL (4.20-5.40); Red Cell Dist. Width 13.2 % (11.5-14.5); White Blood Cell Count 8.6 10^3/uL (4.8-10.8)
[2024-06-19 13:56] LABS: ALT (SGPT) 30 U/L (0-35); AST (SGOT) 33 U/L (14-36); Alkaline Phosphatase 77 U/L (38-126); Blood Urea Nitrogen 15 mg/dl (7-17); Calcium 9.9 mg/dl (8.4-10.2); Carbon Dioxide 34 mmol/L (22-30); Chloride 98 mmol/L (98-107); Glucose 101 mg/dl (70-99); Potassium 3.7 mmol/L (3.5-5.1); Sodium 139 mmol/L (135-145); Total Bilirubin 0.7 mg/dl (0.2-1.3); Total Protein 6.6 g/dl (6.3-8.2); eGFR > 60.00
== END ==
LOC: CLAB 12:41
PROVIDERS: ATTENDING PHYSICIAN Nurse Practitioner
DX: J18.9 Pneumonia, unspecified organism (principal); E87.6 Hypokalemia
CPT/HCPCS: 36415; 80053; 85025

== ENCOUNTER → 2024-07-12 10:03 | Outpatient (REF) | payer MEDICARE, SELFPAY | LOC: RAD 10:03 | PROVIDERS: ATTENDING PHYSICIAN Nurse Practitioner | DX: J18.9 Pneumonia, unspecified organism (principal); N20.0 Calculus of kidney | CPT/HCPCS: 71046; 74018 ==

== ENCOUNTER → 2024-07-24 11:50 | Outpatient (REF) | payer MEDICARE, SELFPAY ==
[2024-07-24 16:52] LABS: Urine Albumin 2+ (Neg - Trace); Urine Bilirubin 1+ (Negative); Urine Character Slightly Cloudy (Clear); Urine Color Yellow; Urine Glucose Negative (Negative); Urine Ketone Negative (Negative); Urine Leukocyte 3+ (Negative); Urine Nitrite Negative (Negative); Urine Occult Blood 1+ (Negative); Urine Urobilinogen Negative (Neg - 1+)
[2024-07-24 17:12] LABS: Urine Mucus Moderate
[2024-07-24 17:13] LABS: Urine Squamous Cell >30 /LPF (Few)
[2024-07-24 17:14] LABS: Urine Bacteria Moderate (Negative); Urine Red Blood Cell 0-2 /HPF (0-2); Urine White Cell 21-25 /HPF (0-5)
== END ==
LOC: CLAB 11:50
PROVIDERS: ATTENDING PHYSICIAN Specialist
DX: N39.0 Urinary tract infection, site not specified (principal)
CPT/HCPCS: 81003; 81015; 87086

== ENCOUNTER → 2024-08-01 12:32 | Outpatient (REF) | payer MEDICARE, SELFPAY ==
[2024-08-01 14:18] LABS: Erythrocyte Sed Rate 1 mm/hour (0-20)
[2024-08-01 14:28] LABS: C-Reactive Protein < 5.00 mg/L (0.0-10.00)
== END ==
LOC: REG 12:32
PROVIDERS: ATTENDING PHYSICIAN Nurse Practitioner; FAMILY PHYSICIAN Nurse Practitioner
DX: Z87.19 Personal history of other diseases of the digestive system (principal)
CPT/HCPCS: 36415; 85652; 86140

== ENCOUNTER → 2024-08-11 11:39 | Outpatient (REF) | payer MEDICARE, SELFPAY | LOC: REG 11:39 | PROVIDERS: ATTENDING PHYSICIAN Nurse Practitioner; FAMILY PHYSICIAN Nurse Practitioner | DX: Z87.19 Personal history of other diseases of the digestive system (principal) | CPT/HCPCS: 36415; 83993 ==

== ENCOUNTER 2024-11-23 03:27 | Inpatient (IN) | payer MEDICARE, SELFPAY ==
[2024-11-22 19:04] VITALS: BP 114/73
[2024-11-22 19:37] LABS: Hematocrit 33.7 % (37.0-47.0); Hemoglobin 11.3 g/dL (12.0-16.0); Mean Corp Hgb Conc. 33.5 g/dL (33.0-37.0); Mean Corpuscular Volume 86.0 fL (81.0-99.0); Red Cell Dist. Width 14.8 % (11.5-14.5)
[2024-11-22 19:40] LABS: ALT (SGPT) 40 U/L (0-35); AST (SGOT) 67 U/L (14-36); Albumin 3.9 g/dl (3.5-5.0); Alkaline Phosphatase 62 U/L (38-126); Blood Urea Nitrogen 23 mg/dl (7-17); Calcium 9.3 mg/dl (8.4-10.2); Carbon Dioxide 28 mmol/L (22-30); Chloride 98 mmol/L (98-107); Glucose 121 mg/dl (70-99); Potassium 3.2 mmol/L (3.5-5.1); Sodium 134 mmol/L (135-145); Total Protein 6.4 g/dl (6.3-8.2); eGFR > 60.00
[2024-11-22 19:41] LABS: COVID-19 Antigen Negative (Negative)
[2024-11-22 19:58] LABS: Absolute Neutrophils -Man Diff 3.2 10^3/uL (1.4-6.5); Normal RBC Morphology Yes; Platelet Count 27 10^3/uL (130-400); Platelets Checked Yes
[2024-11-22 19:59] LABS: Total Cells Counted 100
[2024-11-22 21:33] VITALS: BP 100/49
[2024-11-22] MEDS: BENADRYL 25 MG IV (22:51)
[2024-11-22] MEDS: NSS with KCL 40 MEQ 1000 IV (22:51)
[2024-11-22] MEDS: SOLU-CORTEF 200 MG IV (22:51)
--- NOTE | 2024-11-22 23:41 | ED.GENMED ---
History of Present Illness
General
Chief Complaint: Fever
Source: patient
Exam Limitations: none
Time Seen by Provider: 11/22/24 22:13
Nursing documentation reviewed up to this point in time: agreed with
History of Present Illness
History of Present Illness:
This is a harsha 89-year-old woman who resides at home. Her daughter and son-in-law reside with her. She has history of Crohn's disease, currently on no treatments for Crohn's disease. History of hypertension, CVA, GERD, kidney stones,
osteoarthritis. She presents with 2 to 3-day history of generalized weakness with onset of low-grade fever yesterday that progressed to Tmax of 101.3 �F at 5 PM today. She did take a dose of Tylenol at 5 PM today with improvement in fever. She
complains of generalized fatigue, generalized weakness. She denies cough nor sore throat nor nasal congestion.
She has noted some left lower quadrant to left lateral flank pain accompanied with some nausea, markedly decreased appetite today.
Patient states she had family visiting over the weekend and shortly after they left on Wednesday, she was bringing pillows in from her deck and suffered a trip and fall through the screen door opening into the house. She denies loss of consciousness
but believes she may have struck her head. She has had mild generalized headache since the fall, no neck pain, no lower back pain. She denies numbness nor focal weakness. She has been ambulatory since the fall. She suffered a superficial skin
tear to her left proximal posterior forearm with only minimal bleeding. She has been treating this with a local dressing. She denies drainage nor redness nor significant pain to the laceration.
She denies dysuria and urgency nor hematuria.
No close contacts with similar symptoms.
No recent travel.
Past History
Past History
ED Past Medical History: CVA (TIA, ICH), HTN and Other (Crohn's disease; kidney stones)
ED Past Surgical History: Appendectomy, Bowel resection, Cholecystectomy, Tonsilectomy and Other
Social History
Tobacco: Non-smoker
Alcohol: None
Drug: None
Personal:
Living: alone
Employment: Retired
Family History
Family History: Other (Noncontributory)
Phy Exam
Physical Exam
Physical Exam:
GENERAL: 89-year-old woman appears her stated age, bright and alert, pleasant, appears in no acute distress. Currently afebrile.
EYE: pupils equal and reactive. anicteric. The head is normocephalic, atraumatic.
NECK: Supple, nontender, no meningismus, no significant adenopathy.
ENT: posterior pharynx is without injection, there are few superficial pinpoint ulcerations hard palate as well as soft palate, no exudate, oral mucosa is moist. TM clear b/l, nares patent.
CARDIAC: Regular rate and rhythm. no murmur.
LUNGS: Clear breath sounds bilaterally, no acute respiratory distress, no wheezes/rales/rhonchi
ABDOMEN: Soft, nondistended, mild tenderness left lower quadrant without rebound or guarding, no r/g, mild left lateral flank tenderness to palpation, minimal left CVA tenderness to percussion, normoactive BS.
BACK: No midline bony tenderness. Straight leg raising is negative bilaterally. No midline bony tenderness. Straight leg raising is negative bilaterally.
NEUROLOGICAL: Alert and oriented x3, no focal neuro deficits.
SKIN: Warm and dry, normal color, no rash. No petechiae. There is a 3 cm superficial subacute skin tear left posterior superior forearm. There is early eschar formation. There is no ecchymosis nor soft tissue swelling, no erythema, no drainage.
MUSCULOSKELETAL: No C/C/E. peripheral pulses are full and equal b/l. No palpable tenderness.
PSYCH: Normal and appropriate interaction.
Sepsis
Sepsis Screening
Sepsis Assessment: Sepsis Ruled Out
Sepsis Screen
Sepsis Screen: Sepsis Ruled Out
Date: 11/23/24
Time: 07:17
Course
Orders/Labs/Results
Orders:
Orders
11/22/24 19:06
Complete Blood Count/With Diff Urgent
Manual Differential Urgent
11/22/24 19:12
COVID-19 Antigen Urgent
Source: Nasal Swab
Lactic Acid Urgent
11/22/24 19:22
Comprehensive Metabolic Panel Urgent
Direct Bilirubin Urgent
Comment: ADD ON
LDH Urgent
Comment: ADD ON
11/22/24 22:17
Urinalysis Reflex To Culture Urgent
Date Specimen was Collected: 11/22/24
Time Specimen was Collected: 22:44
11/22/24 22:34
Diphenhydramine [Benadryl] 25 mg IV NOW STA
Hydrocortisone Sod Succinate [Solu-Cortef] 200 mg IV NOW STA
KCl 40 Meq/0.9%Sodchl 1000 ml [NSS with KCL 40 MEQ] 40 meq in 1,000 ml IV 200 mls/hr
11/22/24 22:39
Wound Dressing- Treatment ONCE
Location of Wound: left arm
Treatment of Wound: bacitracin, adaptic, nonstick dressing
11/23/24 00:03
CT Abd/pelvis W Iv Cont Urgent
Reason For Exam: fever, LLQ, L flank pain, low platelets
11/23/24 00:04
CT Head W/o Iv Contrast Urgent
Reason For Exam: fall, (?)head injury, low platelets
11/23/24 00:23
Urine Microscopic Reflex Cult Urgent
11/23/24 02:01
Add On- LAB Stat
Tests Added?: direct bili, LDH, haptoglobin
11/23/24 02:04
Add On- LAB Stat
Tests Added?: [id number]
11/23/24 02:20
Ehrlichia/Anaplasma by PCR [S] Stat
Lyme Progressive Stat
Blood Parasites Stat
SHANNAN Source: Blood/Venous
Specimen Description:
11/23/24 02:28
Consult Notification Routine
Specialty to Notify: Surgical
SURGICAL CONSULT Routine
Consulting Provider: Trever Morales
Was physician already notified: No
Reason for consult: concern for splenic laceration
11/23/24 02:29
HEMATOLOGY CONSULT Routine
Consulting Provider: Yuliana Lofton
Was physician already notified: Yes
Reason for consult: concern for TTP, ITP
11/23/24 02:30
Admit/Transfer Patient As Directed
Co-Sign Provider:
Level of Care: Inpatient admission
Assign to:: Telemetry
Physician / Group: hospitalist
Diagnosis: fever, thrombocytopenia
Reason for Telemetry: Arrhythmia
Date to Stop Telemetry: 11/26/24
Time to Stop Telemetry: 11:00
Reason for Hospitalization: fever, thrombocytopenia
Expected length of stay greater than two midnights?: Yes
ELOS- Estimated Length of Stay in days: 4
I certify the patient meets the requirements for IP care: Yes
PRN Pain Medication Management As Directed
May give lesser potent ordered pain med per pt: Yes
preference::
Protocol:: Medication orders for pain may be administered in a
manner that supports deferring to patient preference
when the pt is:
- Requesting an ordered lesser potent pain medication.
Least to most potent pain medications are defined
as: acetaminophen < NSAID < tramadol < opioids
(morphine, oxycodone, hydromorphone).
- Requesting a lesser dose of the same medication IF
ORDERED.
- Requesting a less intrusive route of administration
if both routes are prescribed by the provider (PO <
IV).
11/23/24 02:31
Code Status As Directed
Resuscitation Status: Full Code
11/23/24 03:00
MethylPREDNISolone. [Solu-Medrol] 1,000 mg 0.9% Sodium Chloride 250 ml [Nss] 250 ml IV Q24H
11/23/24 04:24
Acetaminophen [Tylenol] 650 mg PO Q4HPRN PRN
Bisacodyl [Dulcolax] 10 mg RECTAL [id number] PRN
Docusate W/Senna [Senokot-S] 1 tablet PO BIDPRN PRN
Ondansetron Injectable [Zofran] 4 mg IV Q8HPRN PRN
Polyethylene Glycol Powder [Miralax] 17 grams PO DAILYPRN PRN
11/23/24 04:24
Activity As Directed
Activity Level: Out of Bed-Early Mobility
Pneumatic Compression Sleeves As Directed
Type: Knee high
Vital Signs As Directed
Frequency: Per unit guidelines
DX Deep Vein Thrombosis Video Routine
11/23/24 05:14
Hepatitis B Core Ab, Total IN AM
Hepatitis B Surface Antibody IN AM
Hepatitis B Surface Antigen IN AM
Hepatitis C Antibody IN AM
TSH Reflex To Free T4 IN AM
11/23/24 06:00
Complete Blood Count/With Diff IN AM
Comprehensive Metabolic Panel IN AM
11/23/24 08:00
Escitalopram Oxalate [Lexapro] 10 mg PO DAILY
11/23/24 Lunch
Regular
At Your Request: Full Participation
11/23/24 22:00
Atorvastatin [Lipitor] 10 mg PO HS
11/26/24 11:00
DC Protocol for Telemetry ONCE
Abnormal Lab Results
11/22/24 11/22/24 11/23/24
19:06 19:22 00:23
RBC 3.92 L 10^6/uL
(4.20-5.40)
Hgb 11.3 L g/dL
(12.0-16.0)
Hct 33.7 L %
(37.0-47.0)
RDW 14.8 H %
(11.5-14.5)
Plt Count 27 L* 10^3/uL
(130-400)
Monocytes (Manual) 19 H %
(2-9)
Sodium 134 L mmol/L
(135-145)
Potassium 3.2 L mmol/L
(3.5-5.1)
BUN 23 H mg/dl
(7-17)
Glucose 121 H mg/dl
(70-99)
Total Bilirubin 1.7 H mg/dl
(0.2-1.3)
AST 67 H U/L
(14-36)
ALT 40 H U/L
(0-35)
Lactate Dehydrogenase 562 H U/L
(120-246)
Ur Occult Blood Reflex 1+ A
(Negative)
Urine Bacteria (Reflex) Few A
(Negative)
Urine Albumin (Reflex) 2+ A
(Neg - Trace)
11/22/24 19:06
11/22/24 19:22
Vital Signs
Initial and Last Documented VS:
Initial Vital Signs
Temp Pulse Resp BP Pulse Ox
98.9 F 93 18 114/73 95
11/22/24 19:04 11/22/24 19:04 11/22/24 19:04 11/22/24 19:04 11/22/24 19:04
Last Documented Vital Signs
Temp Pulse Resp BP Pulse Ox
97.8 F 73 14 115/62 99
11/23/24 04:00 11/23/24 04:00 11/23/24 04:00 11/23/24 04:00 11/23/24 04:00
MDM/Problems Addressed
Differential Diagnosis Includes:
Concern for viral syndrome, colitis, diverticulitis, UTI, pyelonephritis, ureteric stone.
Patient suffered a mechanical fall 4 days ago, questionable head injury and has had mild headache thus concern for intracranial injury/intracranial bleeding.
She has not had a cough, no shortness of breath, lungs are clear to auscultation. Pneumonic processes doubtful.
Labs are remarkable for significant thrombocytopenia with platelet count of 27. Normal white blood cell count of 6.0. Hemoglobin of 11.3�at patient's baseline.
Thrombocytopenia is new, no history of similar episodes in the past.
Chemistries reveal mild hypokalemia with potassium of 3.2. Minimally elevated LFTs as well as minimally elevated T. bili. Patient has had no right upper quadrant nor epigastric tenderness however due to advanced age, complains of nausea and
decreased appetite, cholecystitis is also a consideration.
Thrombocytopenia may be ITP versus viral in nature.
Will check CT of the head, CT abdomen pelvis with IV contrast. There is note of iodine and shellfish allergy. Will pretreat with Benadryl and hydrocortisone. Upon review of records patient has had uneventful CTs with IV contrast in the past.
Chronic conditions affecting care: HTN, Previous abdomnial surgery and Other (Crohn's disease)
*Radiology
Radiology exam reviewed: radiology read reviewed
*Pulse Oximetry
SaO2: 96
Oxygen Mode of Delivery: Room air
Patient hypoxic: no
*Rehab Trainer Interpretation
Rate: normal
Interpretation: normal
Rhythm: sinus
*Critical Care Note
Total Time (30-74mins, 75-104mins- exclusive of procedures): Not Applicable
ED Attending Note
-
Portions of this chart may have been created with voice recognition software.� Occasional wrong word or��sound alike� substitutions may have occurred due to the inherent limitations of voice recognition software.
Discharge Plan
Departure
Patient Disposition: Admit
Date of Disposition: 11/23/24
Time of Disposition: 01:36
Admit to: Med/Surg
Admit to doctor: Rosalia
Presentation/result/management discussed w/ accepting MD/DO: Hospitalist
Condition: Fair
Discharge Problem:
Acute febrile illness, Acute severe thrombocytopenia, Splenomegaly
Interventions
Interventions:
*Risk Screen - Suicide Last Done: 11/23/24 04:29
*General Assessment Last Done: 11/22/24 22:11
*Neglect/Abuse Screening Last Done: 11/22/24 19:04
*ED- Fall Risk Assessment Last Done: 11/22/24 22:11
*ED COVID-19 Vaccine History Last Done: 11/23/24 04:29
*Nursing Disposition Last Done: 11/23/24 03:50
ED- Neurological Assessment Last Done: 11/22/24 23:30
ED-Skin Assessment Last Done: 11/22/24 23:30
Discharge Date and Time
Discharge Date/Time: 11/23/24 03:50
[2024-11-22 23:42] VITALS: BP 113/65
[2024-11-23] VITALS (10 sets, daily range): BP systolic 105–140; BP diastolic 51–74; BMI 23.4
[2024-11-23 00:45] LABS: Urine Character Clear (Clear)
[2024-11-23 01:13] LABS: Urine Squamous Cell >30 /LPF (Few)
[2024-11-23 01:14] LABS: Urine Red Blood Cell None Seen /HPF (0-2)
--- NOTE | 2024-11-23 02:34 | HPS.HSE ---
Addendum entered and electronically signed by Kaveh Lindsey MD 11/23/24 04:20:
#Hypokalemia
repleted in ED
stop HCTZ
Original Note:
Family Physician
-
Family Physician: JOSSELYN Muniz
Chief Complaint
-
fever, weakness
History of Present Illness
89yo F with PMHx of CAD, GERD, TONYA. HTN, Osteoporosis, HLD came with 3 days of progressive weakness and fevers. She also had fall onto her back a day ago at home without LOC. No respiratory and no urinary symnptoms. Found thrombocytopenia and
elevated LFT with concern for splenic infarct or laceration (though without extravasation) on the abd CT.
Medical History
Past Medical History
Past Medical History: Reports Other
Additional Past Medical History:
See HPI
Past Surgical History: Reports None
Social History
Tobacco: Non-smoker
Alcohol: None
Drug: None
Family History
Family History: Not pertinent
Allergies / Home Medications
Allergies reflects when Allergies were last updated in [employer].
Home Medications with original date entered in [employer]
Allergy/Medication List:
Allergies
Allergy/AdvReac Type Severity Reaction Status Date / Time
Horse/Equine Containing Allergy LOC Verified 06/10/24 16:05
Products
iodine (Iodine) Allergy Hives Verified 06/10/24 16:05
lobster Allergy Hives Verified 11/22/24 19:04
ragweed pollen Allergy SNEEZING Verified 06/10/24 16:05
shellfish derived Allergy Hives Verified 06/10/24 16:05
Tetanus Vaccines and Toxoid Allergy Unknown Verified 06/10/24 16:05
shellfish with mayonnaise Allergy Hives Uncoded 06/10/24 16:05
Home Medications
cyanocobalamin (vitamin B-12) 1,000 mcg tablet (Vitamin B-12) 1,000 mcg PO MOTH Supplement 03/11/23
famotidine 40 mg tablet 40 mg PO HS Gastrointestinal Issue 03/11/23
ferrous sulfate 325 mg (65 mg iron) tablet 325 mg PO DAILY Supplement 03/11/23
simvastatin 20 mg tablet 20 mg PO HS High Cholesterol 03/11/23
aspirin 81 mg tablet,delayed release 81 mg PO DAILY Blood Clot Prevention/Tx 03/31/23
denosumab 60 mg/mL subcutaneous syringe (Prolia) 60 mg SC [id number] osteoporosis 03/31/23
cholecalciferol (vitamin D3) 25 mcg (1,000 unit) tablet (Vitamin D3) 175 mcg PO DAILY Supplement 04/05/23
magnesium chloride 71.5 mg (magnesium chloride) tablet,delayed release (Slow-Mag) 71.5 mg PO DAILY mag #30 tabs 06/12/24
acetaminophen 500 mg tablet (Tylenol Extra Strength) 1,000 mg PO Q6HPRN PRN fever 11/22/24
calcium carbonate 1,500 mg PO HS 11/22/24
calcium carbonate 600 mg PO DAILY 11/22/24
ciclopirox 1 % shampoo 1 ea topical .3 TIMES A WEEK 11/22/24
escitalopram oxalate 10 mg tablet 10 mg PO DAILY 11/22/24
guar gum 1 tbsp PO DAILY 11/22/24
hydrochlorothiazide 12.5 mg tablet 12.5 mg PO DAILY 11/22/24
gsdhzusi-aeejxwo-axac-lutein tablet 1 tab PO DAILY 11/22/24
polyethylene glycol 3350 17 gram oral powder packet (Miralax) 17 g PO HS 11/22/24
Review of Systems
-
A 12 point ROS was completed and negative except as noted: Yes
Constitutional: Reports See HPI
Physical Exam
Vital Signs
Vital Signs
Temp Pulse Resp BP Pulse Ox
99.9 F 69 15 106/61 85
11/22/24 23:43 11/23/24 01:45 11/23/24 01:45 11/23/24 01:04 11/23/24 01:45
Physical Exam
General: No Apparent Distress, Comfortable and Conversant
HEENT: NormoCephalic, Anicteric and Moist mucous membranes
Respiratory: Clear; No Wheezes or Crackles
Cardiac: S1/S2; No Tachycardia or Murmur
GI: Soft, Non Tender and Non Distended
Genito-urinary: No costovertebral tender
Musculoskeletal: No Clubbing, No Cyanosis and No Edema
Skin: Warm; No Rash or Jaundice
Neuro: Awake, Alert, Oriented and AO x 3
Psych: Calm
Laboratory Results
-
11/22/24 19:06
11/22/24 19:22
Laboratory Results
Lactic Acid 1.0 mmol/L (0.7-2.0) 11/22/24 19:12
Total Bilirubin 1.7 mg/dl (0.2-1.3) H 11/22/24 19:22
AST 67 U/L (14-36) H 11/22/24 19:22
ALT 40 U/L (0-35) H 11/22/24 19:22
Alkaline Phosphatase 62 U/L (38-126) 11/22/24 19:22
Data Reviewed
-
CT Scan: Report Reviewed by me
Lab Data: Labs Reviewed by me
Impression/Plan
-
A/P:
#Fever
#Thrombocytopenia
#Splenic infarct vs laceration (could be after fall)
#Bilirubinemia
#Elevated LFT
concern for infection vs ITP vs TTP
received Hydrocortisone 200mg in ED, will hold off pulse steroids until results of further tests and Hematology follow up
avoid antiplatelets or anticoag with concern for posible splenic laceration
check [id number], Anaplasma, erlychia, blood mear for parasites, Lyme
check LDH, haptoglobin, retics, direct bili, hepatitis panel
follow CBC
Hematology and GenSx consult (hematology informed about concerns via text)
#Weakness
check TSH
#Essential HTN
#HLD
#Anxiety
#Osteoporosis
cont hoem meds
DVT ppx SCDs
Full code
I have spent at least 78min admitting the patient
[2024-11-23 02:44] LABS: LDH 562 U/L (120-246)
[2024-11-23 05:47] LABS: Hematocrit 30.5 % (37.0-47.0); Hemoglobin 10.0 g/dL (12.0-16.0); Mean Corp Hgb Conc. 32.8 g/dL (33.0-37.0); Mean Corpuscular Volume 86.6 fL (81.0-99.0); Nucleated Red Blood Cells % 0 %; Platelet Count 27 10^3/uL (130-400); Red Cell Dist. Width 14.9 % (11.5-14.5)
[2024-11-23 06:00] LABS: ALT (SGPT) 37 U/L (0-35); AST (SGOT) 60 U/L (14-36); Albumin 3.2 g/dl (3.5-5.0); Alkaline Phosphatase 54 U/L (38-126); Blood Urea Nitrogen 18 mg/dl (7-17); Calcium 8.7 mg/dl (8.4-10.2); Carbon Dioxide 27 mmol/L (22-30); Chloride 106 mmol/L (98-107); Estimated Creatinine Clearance 51 ml/min; Glucose 160 mg/dl (70-99); Potassium 3.2 mmol/L (3.5-5.1); Sodium 139 mmol/L (135-145); Total Protein 5.6 g/dl (6.3-8.2); eGFR > 60.00
[2024-11-23] MEDS: LEXAPRO 10 MG PO (08:23)
[2024-11-23 08:54] LABS: INR 1.07; PT 14.4 Sec (11.4-14.6)
[2024-11-23 08:55] LABS: APTT 34.0 Sec (23.4-35.0)
[2024-11-23 10:36] LABS: Reticulocyte Count 3.0 % (0.4-2.8)
--- NOTE | 2024-11-23 11:10 | CON.GS ---
Addendum entered and electronically signed by Joe Jack MD 11/23/24 14:05:
Patient seen and examined with surgical instrument repair specialist in consultation. Agree with documented consultation note with additions/addendum's noted here.
HPI: 89-year-old female who was in her usual baseline state of health until this past Wednesday, 5 days ago when she began feeling malaise, headache and weakness. She had initially attributed this to having family members in town and being busy with
her schedule. She had a fall ambulating into her house with landing on her left side. Over the next few days her symptoms progressed with worsening malaise, headache, anorexia and nausea. She then had fevers prompting referral to the emergency
department.
On further discussions patient denies any abdominal pain. Bowels have generally been moving regularly but some constipation recently over the last 2 days. No abdominal bloating or distention.
Past medical history notable for CAD, GERD, hypertension and history of Crohn's disease. She is previously undergone cholecystectomy, appendectomy and ileal resection for Crohn's. Last bowel resection decades ago. No history of SBO.
AFVSS
NAD AAO x 3. Resting comfortably in hospital bed, pleasant and participatory for history taking. Daughter at bedside.
ABD: Soft, nondistended, no tenderness on palpation in the left abdomen. Slight tenderness on the right side. No rebound rigidity or guarding.
Laboratory testing reviewed. CBC notable for white blood cells 4, hemoglobin 10 and platelet count of 27.
CT imaging personally reviewed and interpreted as well as radiologist report. There is mild hepatosplenomegaly. Spleen does not appear larger than prior CT imaging of the abdomen. The splenic parenchyma has areas of hypoattenuation and there is
some possibility of localized rim of free fluid immediately adjacent to the left costal margin and spleen. No generalized abdominal free fluid or hemoperitoneum. No evidence of blush.
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 CT imaging questionable for splenic infarct versus intraparenchymal laceration/hematoma.
Symptoms not correlating with splenic infarction as there is no left upper quadrant abdominal pain or any abdominal pain for that matter. Possibility of splenic hematoma/intracapsular laceration in the setting of mild splenomegaly and
thrombocytopenia with her diagnosis of babesiosis this could place her at increased risk for splenic trauma with her recent fall.
The fall was [address] imaging without signs of any significant blood loss, extracapsular involvement or hemoperitoneum or large subcapsular hematoma. No clinical signs of active bleeding (normotensive, no tachycardia).
Given the above I would take precautions to avoid strenuous activity/risk of trauma to the area for the next 6-8 weeks but regular light activity can be as tolerated.
Continue to follow H&H
If change in clinical course raising concern for active splenic bleeding would do CT angiography to evaluate further.
If any overt signs of blood loss/bleeding would also need platelet transfusion given degree of thrombocytopenia.
Regular diet as tolerated from surgical standpoint as low suspicion on need for further workup or intervention.
Bowel regimen
Will follow peripherally.
Original Note:
Documented by User: Anny Crawford MD, Resident 11/23/24 11:35
Consultation
-
Date/Time Consultation Requested: 2:34am, 11/23/24
Date/Time Consultation Performed: 9:30am, 11/23/24
Requesting Provider: Kaveh Lindsey
Performing Provider: Joe Jack
Reason for Consultation: c/f splenic lac/infarct on CT
Medical History
-
Chief Complaint: fever, malaise
History of Present Illness:
Milly Augustin is an 89yo F with PMH notable for Crohn's (s/p ileal resection 20+yr ago), CAD, HTN, & GERD who p/w fever & malaise s/p fall at home ~4 days prior. Surgery consulted due to c/f splenic lac vs. infarct on CT a/p.
Patient reports feeling in normal health until ~3 days ago when she began feeling malaise, headache, general weakness, mild nausea. Had fever 1-2 days, PCP recommended reporting to ED. Fell onto R-sided back at home ~4 days prior. In September, was
treated w abx (unknown?) for tick bite. Takes aspirin 81mg daily at home. Denies abdominal pain. Denies diarrhea, bloody stool/urine, vomiting, CP, SOB.
On admission temp 101.3, remainder VSS. Labs notable for thrombocytopenia (plt 27), Hgb 10-11, indirect hyperbilirubinemia (1.5 tbili), elevated AST, ALT (60, 40), elevated LDH 562. CT a/p w IV contrast read as c/f splenic infarct vs. laceration w
splenomegaly. Received 200mg hydrocortisone, started IVF, PRN zofran/tylenol, and heme & gen surg consulted.
This am, pt reports no abdominal pain, feeling well, asking about going home today. No n/v. Only complaint is some feelings of constipation (no BM last 2 days, takes laxatives at home).
Past Medical History
Past Medical History: CAD, GERD, HTN and Other (Crohn's s/p ileal resection)
Past Surgical History: Appendectomy, Bowel Resection (partial SB resection (ileal, ~1988)) and Cholecystectomy
Social History
Living: With Family
Allergies / Home Medications
Allergy/AdvReac Type Severity Reaction Status Date / Time
Horse/Equine Containing Allergy LOC Verified 06/10/24 16:05
Products
iodine (Iodine) Allergy Hives Verified 06/10/24 16:05
lobster Allergy Hives Verified 11/22/24 19:04
ragweed pollen Allergy SNEEZING Verified 06/10/24 16:05
shellfish derived Allergy Hives Verified 06/10/24 16:05
Tetanus Vaccines and Toxoid Allergy Unknown Verified 06/10/24 16:05
shellfish with mayonnaise Allergy Hives Uncoded 06/10/24 16:05
�Medication �Instructions �Recorded �Confirmed �Type
cyanocobalamin (vitamin B-12) 1,000 mcg PO MOTH Supplement 03/11/23 11/22/24 History
1,000 mcg tablet (Vitamin B-12)
famotidine 40 mg tablet 40 mg PO HS Gastrointestinal Issue 03/11/23 11/22/24 History
ferrous sulfate 325 mg (65 mg 325 mg PO DAILY Supplement 03/11/23 11/22/24 History
iron) tablet
simvastatin 20 mg tablet 20 mg PO HS High Cholesterol 03/11/23 11/22/24 History
aspirin 81 mg tablet,delayed 81 mg PO DAILY Blood Clot 03/31/23 11/22/24 History
release Prevention/Tx
denosumab 60 mg/mL subcutaneous 60 mg SC [id number] osteoporosis 03/31/23 11/22/24 History
syringe (Prolia)
cholecalciferol (vitamin D3) 25 175 mcg PO DAILY Supplement 04/05/23 11/22/24 History
mcg (1,000 unit) tablet (Vitamin
D3)
magnesium chloride 71.5 mg 71.5 mg PO DAILY mag #30 tabs 06/12/24 11/22/24 Rx
(magnesium chloride)
tablet,delayed release (Slow-Mag)
acetaminophen 500 mg tablet 1,000 mg PO Q6HPRN PRN fever 11/22/24 11/22/24 History
(Tylenol Extra Strength)
calcium carbonate 1,500 mg PO HS 11/22/24 11/22/24 History
calcium carbonate 600 mg PO DAILY 11/22/24 11/22/24 History
ciclopirox 1 % shampoo 1 ea topical .3 TIMES A WEEK 11/22/24 11/22/24 History
escitalopram oxalate 10 mg tablet 10 mg PO DAILY 11/22/24 11/22/24 History
guar gum 1 tbsp PO DAILY 11/22/24 11/22/24 History
hydrochlorothiazide 12.5 mg tablet 12.5 mg PO DAILY 11/22/24 11/22/24 History
qxojqncv-hbsxshg-ujvm-lutein tablet 1 tab PO DAILY 11/22/24 11/22/24 History
polyethylene glycol 3350 17 gram 17 g PO HS 11/22/24 11/22/24 History
oral powder packet (Miralax)
Review of Systems
-
History Source: Patient
Constitutional: Other (no fever/chills)
Abdomen/GI: Abdominal Pain (denies abd pain) and Constipated
Neurological: Headache
A 10 point review of systems was completed, and was negative except as per HPI.
Physical Exam
Vital Signs
Temp Pulse Resp BP Pulse Ox
97.8 F 65 16 110/58 96
11/23/24 07:00 11/23/24 07:00 11/23/24 07:00 11/23/24 07:00 11/23/24 07:00
11/22/24 11/23/24 11/24/24
06:59 06:59 06:59
Actual Weight 58.922 kg
Body Mass Index (BMI) 23.4
Lab Results
11/23/24 06:00
11/23/24 06:00
WBC Cancelled 11/23/24 06:00
Hgb Cancelled 11/23/24 06:00
Hct Cancelled 11/23/24 06:00
Plt Count Cancelled 11/23/24 06:00
Abs Immat Gran (auto) Cancelled 11/23/24 06:00
Neutrophils % Cancelled 11/23/24 06:00
Physical Exam
General: Well Developed, Well Nourished and No Apparent Distress
HEENT: Normocephalic, Anicteric and Atraumatic
Respiratory: Non Labored Respirations
GI: Soft, Non Distended and Tender (tenderness to palpation in upper abdomen (LUQ tenderness to palpation in am; RUQ/epigastric tenderness to palpation later in am))
Skin: Warm and Dry
Neuro: Awake, Alert and Oriented
Psych: Calm
Data Reviewed
-
CT Scan: Image Personally Visualized and interpreted, Report Reviewed by me and Discussed with Patient
Labs: Labs Reviewed by me
Critical Care Time (in minutes): 45
Total Time Spent with Patient (in minutes): 15
Assessment / Plan
-
Patient is an 89yo F with PMH of Crohn's (s/p ileal resection 20+yr ago), CAD, & HTN who p/w fever & malaise s/p fall at home ~4 days prior, found to have thrombocytopenia, anemia, & CT ap demonstrating splenomegaly c/f splenic lac vs. infarct, now
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
Assessment: Pt story of recent fall, decreasing Hgb (11.3 to 10 today), & CT w splenic lac vs. infarct raises c/f splenic lac and bleed. However, exam reassuring given lack of peritoneal signs and only moderate abd tenderness to palpation, as well
as patient's overall well/comfortable appearance. Fever, splenomegaly, & hematologic changes (anemia, thrombocytopenia, mild leukopenia w WBC 4.0, elevated LDH) instead likely 2/2 new dx of babesiosis. Likely tick bite in September was trt empirically for
Lyme dz & babesiosis missed, or pt had another recent unrecognized tick bite. Given splenomegaly, spleen is at elevated risk for bruising/injury - radiographic changes seen on CT likely represent bruising to spleen rather than true lac or infarct.
Conservative mgmt indicated.
Plan:
- Avoid strenuous activity or activity that may increase risk of blunt abd/flank trauma for 4-6 weeks
- Continue following with heme/ID for abx trt & recs
- Pt encouraged to use ordered PRN laxatives to relieve constipation discomfort
- Continue tylenol PRN
- Pt fine to eat regular diet PO as desired
- Surgery signed off

Documented by User: Joe Jack MD 11/23/24 13:47
Assessment / Plan
-
Patient is an 89yo F with PMH of Crohn's (s/p ileal resection 20+yr ago), CAD, & HTN who p/w fever & malaise s/p fall at home ~4 days prior, found to have thrombocytopenia, anemia, & CT ap demonstrating splenomegaly c/f splenic lac vs. infarct, now
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
Assessment: Pt story of recent fall, decreasing Hgb (11.3 to 10 today), & CT w splenic lac vs. infarct raises c/f splenic lac and bleed. However, exam reassuring given lack of peritoneal signs and only moderate abd tenderness to palpation, as well
as patient's overall well/comfortable appearance. Fever, splenomegaly, & hematologic changes (anemia, thrombocytopenia, mild leukopenia w WBC 4.0, elevated LDH) instead likely 2/2 new dx of babesiosis. Likely tick bite in September was trt empirically for
Lyme dz & babesiosis missed, or pt had another recent unrecognized tick bite. Given splenomegaly, spleen is at elevated risk for bruising/injury - radiographic changes seen on CT likely represent bruising to spleen rather than true lac or infarct.
Conservative mgmt indicated.
Plan:
- Avoid strenuous activity or activity that may increase risk of blunt abd/flank trauma for 4-6 weeks
- Continue following with heme/ID for abx trt & recs
- Pt encouraged to use ordered PRN laxatives to relieve constipation discomfort
- Continue tylenol PRN
- Pt fine to eat regular diet PO as desired
- Surgery will follow peripherally
--- NOTE | 2024-11-23 11:27 | CON.ID ---
Consultation
-
Date/Time Consultation Requested: 11/23/2024 0921
Date/Time Consultation Performed: 11/23/2024 1048
Requesting Provider: Dr. Zhu
Performing Provider: Dr. Patricio
Reason for Consultation: Babesiosis
Chief Complaint / Past History
History of Present Illness
Milly Mishra is a 89-year-old female being evaluated at the request of Dr. Zhu in regards to babesiosis. History is obtained from chart review, along with patient interview. Additional history was obtained from the patient's daughter who is at
the bedside.
The patient reports that in late September she recalls removing a tick from her low back. At that time she contacted her PCP and was placed on an antibiotic, although at this point she is not sure which one.
More recently, over November she had significant family at the house and did a lot of cooking. She recalls feeling very fatigued on that Wednesday. She also reports that she fell and cut her left arm. The next day she had 'extreme fatigue',
and also had some nausea. She recalls she had attempted to 99 degrees. Over the next 2 days she spent a lot of time sleeping, but developed a fever up to 101 degrees. She contacted her PCP who directed her to the emergency room.
Here, initial labs revealed a normal white count without significant neutrophils, but she was found to be significantly thrombocytopenic, with a platelet count of 27. Additionally, she was noted to have low-grade transaminitis and an elevated LDH.
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 Infectious Diseases asked to comment upon further therapy.
Today, she reports feeling somewhat improved. She notes that she is often outside working in the garden. She does not use DEET with any regularity. In fact, she does not take off her clothes all the time from gardening and we will keep them on
for an extended period of time. Other than the single tick that she noted in September, she has not seen any other ticks on her body.
Past History
Additional Past Medical History:
TIA
Intracranial hemorrhage
HTN
Crohn's disease (not on medication)
Nephrolithiasis
Additional Past Surgical History:
Appendectomy
Ileectomy
Cholecystectomy
Tonsillectomy
Allergy History:
Horse/Equine Containing Products Allergy (Verified 06/10/24 16:05)
LOC
iodine (Iodine) Allergy (Verified 06/10/24 16:05)
Hives
lobster Allergy (Verified 11/22/24 19:04)
Hives
ragweed pollen Allergy (Verified 06/10/24 16:05)
SNEEZING
shellfish derived Allergy (Verified 06/10/24 16:05)
Hives
Tetanus Vaccines and Toxoid Allergy (Verified 06/10/24 16:05)
Unknown
shellfish with mayonnaise Allergy (Uncoded 06/10/24 16:05)
Hives
Medications Reviewed: Yes
Current Antibiotics:
None
Social History
Tobacco: Non-Smoker
Alcohol: None
Drug: None
Personal:
Living: Alone
Employment: Retired
Family History
Family History: Not Pertinent
Review of Systems
Vital Signs
Temp Pulse Resp BP Pulse Ox
97.8 F 65 16 110/58 96
11/23/24 07:00 11/23/24 07:00 11/23/24 07:00 11/23/24 07:00 11/23/24 07:00
Physical Exam
Physical Exam
Constitutional: No Acute Distress, Comfortable, Non-toxic and Cachetic (Mild)
Eyes: Pupils Equal, Pupils Round, No Conjunctival Hemorrhage and Sclera Anicteric
Oral: No Thrush and No Ulcers
Cardiovascular: Regular Rate and S1/S2; Negative S3/S4
Pulmonary: Clear; Negative Wheezes, Rales or Rhonchi
Gastrointestinal: Soft, Non Tender, Non Distended, Normal Bowel Sounds, No Rebound and No Guarding
Extremities: Negative Edema, Cyanosis or Erythema
Skin: Warm and Dry; Negative Rash or Jaundice
Neurological: Awake and Alert
Lab / Diagnostic Study Results
11/23/24 06:00
11/23/24 06:00
Abs Immat Gran (auto) Cancelled 11/23/24 06:00
Absolute Neuts (auto) Cancelled 11/23/24 06:00
Absolute Lymphs (auto) Cancelled 11/23/24 06:00
Absolute Monos (auto) Cancelled 11/23/24 06:00
Absolute Basos (auto) Cancelled 11/23/24 06:00
Total Counted 100 11/22/24 19:06
Immature Gran % Cancelled 11/23/24 06:00
Neutrophils % Cancelled 11/23/24 06:00
Lymphocytes % Cancelled 11/23/24 06:00
Monocytes % Cancelled 11/23/24 06:00
Eosinophils % Cancelled 11/23/24 06:00
Basophils % Cancelled 11/23/24 06:00
Abs Neuts (Manual) 3.2 10^3/uL (1.4-6.5) 11/22/24 19:06
Segmented Neutrophils 54 % (42-75) 11/22/24 19:06
Band Neutrophils 0 % (0-3) 11/22/24 19:06
Lymphocytes (Manual) 25 % (20-51) 11/22/24 19:06
Basophils (Manual) 1 % 11/22/24 19:06
PT 14.4 Sec (11.4-14.6) 11/23/24 08:36
INR 1.07 11/23/24 08:36
Lactic Acid 1.0 mmol/L (0.7-2.0) 11/22/24 19:12
Ur Squamous Epith Cells >30 /LPF (Few) 11/23/24 00:23
Microbiology Results
Micro:
07/10/25 02:20 Blood Parasites Smear - Final
Blood/Venous Babesia species - 3.2%
Imaging:
11/23/2024 CT abdomen/pelvis with contrast: New mild splenomegaly. There is a 5 x 4 cm sheetlike area of low-attenuation with a differential including infarction or laceration. Mild thyromegaly noted. Prior cholecystectomy, appendectomy and
apparent hysterectomy. No biliary tract dilatation. Please see full dictation for additional detail.
Assessment / Plan
Acute babesiosis
- Parasite load at 3.2%
Fevers
Fatigue
Mild transaminitis
Anemia
TIA
Intracranial hemorrhage
HTN
Crohn's disease (not on medication)
Nephrolithiasis
Recommendations:
Begin definitive therapy for Babesia with Azithromycin 500 mg IV every 24 hours and atovaquone 750 mg p.o. every 12 hours
Daily blood parasite smears to assess parasite load.
Monitor white count and temperature curve.
Continue supportive care.
Daily EKG while on Azithromycin
Care Review
Plan reviewed with: Physician (Hospitalist)
[2024-11-23] MEDS: ZITHROMAX INFUSION 250 IV (11:53)
[2024-11-23] MEDS: MEPRON SUSPENSION 750 MG PO ×2 (11:53→21:35)
[2024-11-23 14:14] LABS: Lyme Antibody Screen, EIA Presump. Positive (Negative)
--- NOTE | 2024-11-23 17:06 | CM ---
Patient seen at bedside
Dx: fever, thrombocytopenia
IA completed
Lives with daughter & JEAN-PAUL in a multi-story home, 1 step to enter, flight to bedroom, full bath on 1st floor
PLOF: Independent, no device used
DME: Cane, walker, wheelchair, shower chair, commode
Has had [facility] in past, denies rehab
Denies insecurities
PCP: Marely Milton
Pharmacy: [facility], [place]
PLAN: home, no needs anticipated, CM to continue to follow
--- NOTE | 2024-11-23 17:08 | W.PN.UPDATE ---
Update Note
Progress Note Update
Nonbillable note
1, Babesiosis - have parasitemia 3.2% on peripheral smear. ID consulted for further help .
2. Thrombocytopenia - further testing held at this point, if not improved will need require further hematological testing to r/o other causes
3. Transaminitis/Hepato-splenomegaly - from babsesiosis. avoid hepato-toxic mediacionas possible
4. Questionable splenic infarct - GS evaluated, no indication for any further intervention needed. continus rx of underlying babesiosis,.
[2024-11-23] MEDS: LIPITOR 10 MG PO (21:35)
[2024-11-23] MEDS: TYLENOL 650 MG PO (21:35)
[2024-11-24 03:00] VITALS: BP 127/66
[2024-11-24 05:35] VITALS: BMI 23.6
[2024-11-24 07:49] VITALS: BP 109/59
[2024-11-24] MEDS: LEXAPRO 10 MG PO (08:45)
[2024-11-24] MEDS: MEPRON SUSPENSION 750 MG PO ×2 (08:45→20:53)
--- NOTE | 2024-11-24 08:45 | CON.ONC ---
Documented by User: Elle Watson DO, Resident 11/24/24 13:07
Consultation
-
Date Consultation Requested: 11/23/24
Date Consultation Performed: 11/24/24
Performing Provider: Jesus Lu MD
Impression
Impression
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
- Thrombocytopenia
- History of recent tick bites
- Splenic abnormality
Plan
Plan
Babesiosis
- managing as per ID recommendations: Azithromycin 500 mg IV every 24 hours and atovaquone 750 mg p.o. every 12 hours
Thrombocytopenia
Hemolysis
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
- Continue to monitor CBC
- Fibrinogen lab ordered
- Direct platelet antibody resulted negative
- Antiphospholipid antibody pending
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
- Consider transfusion for active bleeding or<20K
Patient History
History of Present Illness
Patient is an 89 year old female with PMH of Crohn's s/p ileal resection 20+ years ago, CAD, HTN and GERD who presented to the ED with fever, malaise and a fall at home. Patient reports a 3 day history of malaise, headache, weakness and nausea,
accompanied with a 2 day fever. Patient also fell on her right side about 4 days ago, resulting in a laceration to her left forearm. Patient did not note any excessive bleeding. In September, patient had been treated for a tick bite by her PCP with an
antibiotic but she cannot remember which.
In the ED patient had a temp of 101.3, labs notable for thrombocytopenia plt 27, hgb 11.3, indirect hyperbilirubinemia (1.5) elevated AST and ALT, elevated LDH. CT AP concerning for splenic infarct vs laceration with splenomegaly as well as mild
hepatomegaly. Surgery consulted.
Additional hemolytic work up revealed reticulocyte count of 3, negative direct antiglobulin test. Blood smear positive for Babesia parasite. Per ID recommendations, started on azithromycin and atovaquone.
Patient seen this morning at the bedside. Patient states she is feeling well and denies all ROS, aside from fatigue.
Past-Medical/Surgical History
Medical History
CAD
GERD
HTN
Crohn's s/p ileal resection
Surgical History
Appendectomy
Partial Small Bowel Resection in 1988
Cholecystecomy
Patient Medication
�Medication �Instructions �Recorded �Confirmed �Last Taken �Type
cyanocobalamin (vitamin B-12) 1,000 mcg PO MOTH Supplement 03/11/23 11/22/24 11/20/24 History
1,000 mcg tablet (Vitamin B-12)
famotidine 40 mg tablet 40 mg PO HS Gastrointestinal Issue 03/11/23 11/22/24 11/21/24 History
ferrous sulfate 325 mg (65 mg 325 mg PO DAILY Supplement 03/11/23 11/22/24 11/22/24 History
iron) tablet
simvastatin 20 mg tablet 20 mg PO HS High Cholesterol 03/11/23 11/22/24 11/21/24 History
aspirin 81 mg tablet,delayed 81 mg PO DAILY Blood Clot 03/31/23 11/22/24 11/22/24 History
release Prevention/Tx
denosumab 60 mg/mL subcutaneous 60 mg SC [id number] osteoporosis 03/31/23 11/22/24 5 Months Ago History
syringe (Prolia) ~06/25/24
cholecalciferol (vitamin D3) 25 175 mcg PO DAILY Supplement 04/05/23 11/22/24 11/22/24 History
mcg (1,000 unit) tablet (Vitamin
D3)
acetaminophen 500 mg tablet 1,000 mg PO Q6HPRN PRN fever 11/22/24 11/22/24 11/22/24 History
(Tylenol Extra Strength)
calcium carbonate 1,500 mg PO HS Gastrointestinal 11/22/24 11/22/24 11/21/24 History
Issue
calcium carbonate 600 mg PO DAILY Supplement 11/22/24 11/22/24 11/22/24 History
ciclopirox 1 % shampoo 1 ea topical .3 TIMES A WEEK Skin 11/22/24 11/22/24 11/22/24 History
Issues
escitalopram oxalate 10 mg tablet 10 mg PO DAILY depression/anxiety 11/22/24 11/22/24 11/22/24 History
guar gum 1 tbsp PO DAILY Supplement 11/22/24 11/22/24 11/22/24 History
hydrochlorothiazide 12.5 mg tablet 12.5 mg PO DAILY Blood Pressure 11/22/24 11/22/24 11/22/24 History
pdlcipic-sdupdam-kfqx-lutein tablet 1 tab PO DAILY Supplement 11/22/24 11/22/24 11/22/24 History
polyethylene glycol 3350 17 gram 17 g PO HS Constipation 11/22/24 11/22/24 11/21/24 History
oral powder packet (Miralax)
magnesium chloride 71.5 mg 71.5 mg PO DAILY Supplement 11/23/24 11/22/24 11/22/24 History
(magnesium chloride)
tablet,delayed release (Slow-Mag)
Active Medications
Generic Name Dose Route Start Last Admin
Trade Name Freq PRN Reason Stop Dose Admin
Acetaminophen 650 mg 11/23/24 04:24 11/23/24 21:35
Acetaminophen 325 Mg Tablet PO 12/21/24 04:23 650 mg
Q4HPRN PRN Administration
mild pain/VICK/temp> 100.4F
Atorvastatin Calcium 10 mg 11/23/24 22:00 11/23/24 21:35
Atorvastatin (Lipitor) 10 Mg Tablet PO 12/21/24 21:59 10 mg
HS CEDRICK Administration
Atovaquone 750 mg 11/23/24 12:00 11/23/24 21:35
Atovaquone 750 Mg/5 Ml Oral Suspension Cup PO 12/03/24 11:59 750 mg
Q12 CEDRICK Administration
Bisacodyl 10 mg 11/23/24 04:24
Bisacodyl 10 Mg Rectal Suppository RECTAL 12/21/24 04:23
[id number] PRN
constipation
Escitalopram Oxalate 10 mg 11/23/24 08:00 11/23/24 08:23
Escitalopram 10 Mg Tablet PO 12/21/24 07:59 10 mg
DAILY CEDRICK Administration
Azithromycin 500 mg in 250 mls @ 250 mls/hr 11/23/24 12:00 11/23/24 11:53
Zithromax Infusion IV 250 mls
Q24H CEDRICK Administration
Ondansetron HCl 4 mg 11/23/24 04:24
Ondansetron 4 Mg/2 Ml Vial IV 12/21/24 04:23
Q8HPRN PRN
nausea and vomiting
Polyethylene Glycol 17 grams 11/23/24 04:24
Polyethylene Glycol Powder 17 Grams Packet PO 12/21/24 04:23
DAILYPRN PRN
constipation
Senna/Docusate Sodium 1 tablet 11/23/24 04:24
Docusate W/Senna (Deb-Colace) Tablet PO 12/21/24 04:23
BIDPRN PRN
constipation
Sodium Chloride 0 flush 11/23/24 05:00
Sodium Chloride 0.9% (Flush) Syringe IV 12/21/24 04:59
PER PROTOCOL CEDRICK
Review of Systems
-
History Source: Patient
Constitutional: Reports Fatigue and Weakness
EENT: Reports No Symptoms
Respiratory: Reports No Symptoms
Cardiac: Reports No Symptoms
GI: Reports No Symptoms
Neuro: Reports No Symptoms
Psych: Reports No Symptoms
Physical Exam
-
General: No Apparent Distress and Comfortable
Cardiology: Normal Sinus Rhythm
Pulmonary: Clear
GI: Soft
Skin: Warm and Dry
Psych: Calm
Labs
Lab Results
WBC Cancelled 11/23/24 06:00
RBC Cancelled 11/23/24 06:00
Hgb Cancelled 11/23/24 06:00
Hct Cancelled 11/23/24 06:00
MCV Cancelled 11/23/24 06:00
MCH Cancelled 11/23/24 06:00
MCHC Cancelled 11/23/24 06:00
RDW Cancelled 11/23/24 06:00
Plt Count Cancelled 11/23/24 06:00
MPV Cancelled 11/23/24 06:00
Abs Immat Gran (auto) Cancelled 11/23/24 06:00
Absolute Neuts (auto) Cancelled 11/23/24 06:00
Absolute Lymphs (auto) Cancelled 11/23/24 06:00
Absolute Monos (auto) Cancelled 11/23/24 06:00
Absolute Eos (auto) Cancelled 11/23/24 06:00
Absolute Basos (auto) Cancelled 11/23/24 06:00
Immature Gran % Cancelled 11/23/24 06:00
Neutrophils % Cancelled 11/23/24 06:00
Lymphocytes % Cancelled 11/23/24 06:00
Monocytes % Cancelled 11/23/24 06:00
Eosinophils % Cancelled 11/23/24 06:00
Basophils % Cancelled 11/23/24 06:00
Creatinine Cancelled 11/23/24 06:00
Vital Signs
Vital Signs
Temp Pulse Resp BP Pulse Ox
97.7 F 70 17 109/59 94
11/24/24 07:49 11/24/24 07:49 11/24/24 07:49 11/24/24 07:49 11/24/24 07:49

Documented by User: Jesus Lu MD 11/24/24 18:54
Plan
Plan
Babesiosis
- managing as per ID recommendations: Azithromycin 500 mg IV every 24 hours and atovaquone 750 mg p.o. every 12 hours
Thrombocytopenia
Hemolysis
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
- Continue to monitor CBC
- Fibrinogen lab ordered
- Direct platelet antibody resulted negative
- Antiphospholipid antibody pending
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
- Consider transfusion for active bleeding or<20K
Hematology Addendum:
Patient seen and evaluated and agree w/ resident note and plan as outlined
-babesiosis - w/ tx as per ID
-follow CBC
Will continue to follow with you.
--- NOTE | 2024-11-24 09:29 | W.PN.ID1 ---
Date of Service
Date of Service: November 24, 2024
Today's Communication
Continue abx. See below...
Assessment / Plan
Acute babesiosis
- Initial parasite load at 3.2%
Fevers
Fatigue
Mild transaminitis
Anemia
TIA
Intracranial hemorrhage
HTN
Crohn's disease (not on medication)
Nephrolithiasis
Recommendations:
Continue therapy for Babesia with Azithromycin 500 mg IV q24h (d#2) and atovaquone 750 mg p.o. q12h (d#2)
Daily blood parasite smears to assess parasite load until negative.
Follow LDH.
Monitor white count and temperature curve.
Anaplasma / ehrlichia PCR pending. Lyme serology pending.
Continue supportive care.
Daily EKG while on Azithromycin
����������������������������������������������������������
Chief Complaint
-: Other (Babesiosis)
Subjective / Review of Systems
Patient seen and examined. Reports feeling well, although temperature to 101.1 degrees last evening.
Vital Signs / Physical Exam
Vital Signs
Vital Signs
Temp Pulse Resp BP Pulse Ox
97.7 F 70 17 109/59 94
11/24/24 07:49 11/24/24 07:49 11/24/24 07:49 11/24/24 07:49 11/24/24 07:49
Physical Exam
Constitutional: No Acute Distress, Comfortable, Chronically Ill and Non-toxic
Eyes: Sclera Anicteric
Cardiovascular: S1/S2; Negative S3/S4
Pulmonary: Non Labored
Gastrointestinal: Soft, Non Tender and Non Distended
Skin: Warm and Dry; Negative Rash or Jaundice
Neurological: Awake and Alert
Psychological: Calm
Objective Data
Lab Data
Lab Results
11/23/24 06:00
11/23/24 06:00
PT 14.4 Sec (11.4-14.6) 11/23/24 08:36
INR 1.07 11/23/24 08:36
APTT 34.0 Sec (23.4-35.0) 11/23/24 08:36
Estimated Creat Clear Cancelled 11/23/24 06:00
Lactic Acid 1.0 mmol/L (0.7-2.0) 11/22/24 19:12
Total Bilirubin Cancelled 11/23/24 06:00
AST Cancelled 11/23/24 06:00
ALT Cancelled 11/23/24 06:00
Alkaline Phosphatase Cancelled 11/23/24 06:00
Most recent labs reviewed.
Micro Results:
11/23/24 02:20 Blood Parasites Smear - Final
Blood/Venous Babesia species
Imaging:
11/23/2024 CT abdomen/pelvis with contrast: New mild splenomegaly. There is a 5 x 4 cm sheetlike area of low-attenuation with a differential including infarction or laceration. Mild thyromegaly noted. Prior cholecystectomy, appendectomy and
apparent hysterectomy. No biliary tract dilatation. Please see full dictation for additional detail.
[2024-11-24 11:35] LABS: Hematocrit 29.3 % (37.0-47.0); Hemoglobin 9.6 g/dL (12.0-16.0); Mean Corp Hgb Conc. 32.8 g/dL (33.0-37.0); Mean Corpuscular Volume 87.2 fL (81.0-99.0); Platelet Count 28 10^3/uL (130-400); Red Cell Dist. Width 14.9 % (11.5-14.5)
[2024-11-24 11:44] VITALS: BP 97/53
[2024-11-24 12:03] LABS: ALT (SGPT) 42 U/L (0-35); AST (SGOT) 86 U/L (14-36); Albumin 3.0 g/dl (3.5-5.0); Alkaline Phosphatase 56 U/L (38-126); Blood Urea Nitrogen 14 mg/dl (7-17); Calcium 8.5 mg/dl (8.4-10.2); Carbon Dioxide 27 mmol/L (22-30); Chloride 106 mmol/L (98-107); Estimated Creatinine Clearance 51 ml/min; Glucose 124 mg/dl (70-99); Potassium 2.8 mmol/L (3.5-5.1); Sodium 135 mmol/L (135-145); Total Protein 5.5 g/dl (6.3-8.2); eGFR > 60.00
[2024-11-24 12:06] LABS: Absolute Neutrophils -Man Diff 3.1 10^3/uL (1.4-6.5); Platelets Checked Yes
[2024-11-24 12:07] LABS: Anisocytosis Slight; Normal RBC Morphology No; Total Cells Counted 100
--- NOTE | 2024-11-24 12:23 | CM ---
Patient seen at bedside
continue antibiotic
tt hospitalist for PT order
PLAN: Home, PT to eval, CM to follow for needs
[2024-11-24] MEDS: ZITHROMAX INFUSION 250 IV (12:31)
--- NOTE | 2024-11-24 13:22 | W.PN.HOSP.TC ---
Today's Communication/Plan
-
see note
Assessment / Plan
Assessment / Plan
CT a/p
New mild splenomegaly. 5 x 4 cm sheetlike area of low attenuation within the spleen extending peripherally. Most likely differential diagnostic possibilities would be a splenic infarct or laceration with small volume perisplenic fluid/edema. Mild
hepatomegaly.
Prior cholecystectomy, appendectomy and apparent hysterectomy. No biliary tract dilatation.
Bilateral subcentimeter low-attenuation renal lesions too small to characterize. 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 No findings to suggest obstructive uropathy bilaterally.
Prior gastric surgery/surgery at the gastroesophageal junction. Some right colonic fluid and small bowel fluid nonspecific. Suggest correlation for any signs/symptoms of enteritis. No intestinal obstruction or free air.

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 repeat one pending. Temp of 101.1 last night . Currently on regimen of atovaquone and azithromycin, ID help appreciated. QTc of 450ms.
2. Thrombocytopenia - further testing held at this point, if not improved will need require further hematological testing to r/o other causes. Platelet count remains stable close to 28k, no bleeding diatehsis.
3. Transaminitis/Hepato-splenomegaly - from babesiosis. avoid hepato-toxic medication as possible
4. Questionable splenic infarct - GS evaluated, no indication for any further intervention needed. continue rx of underlying babesiosis
Case discussed with ID
Total time spent : 53 mins
Anticipated Discharge: > 48 hours
Subjective/Interval History
-
Date of Service: November 24, 2024
Patient febrile with temperature 101.1 �F overnight
No bleeding diathesis
Subjectively feeling better
Objective Data
-
Labs:
Laboratory Results
11/24/24
11:06
WBC 4.4 L
Hgb 9.6 L
Hct 29.3 L
Plt Count 28 L*
Sodium 135
Potassium 2.8 L
Chloride 106
Carbon Dioxide 27
BUN 14
Creatinine 0.4 L
Glucose 124 H
Calcium 8.5
Total Bilirubin 1.2
AST 86 H
ALT 42 H
Alkaline Phosphatase 56
Vital Signs:
Vital Signs
Temp Pulse Resp BP Pulse Ox
98.5 F 68 16 97/53 94
11/24/24 11:44 11/24/24 11:44 11/24/24 11:44 11/24/24 11:44 11/24/24 11:44
I&O
11/23/24 11/24/24 11/25/24
06:59 06:59 06:59
Intake Total 1260 / 1260
Balance 1260 / 1260
Review of Systems
-
Respiratory: Reports No Symptoms
Cardiac: Reports No Symptoms
Abdomen/GI: Reports No Symptoms
Physical Exam
-
General: No Apparent Distress and Comfortable
HEENT: Negative Oxygen
Respiratory: Clear to Auscultation
Cardiac: Regular Rhythm and S1/S2; Negative Murmur or Rub
GI: Soft, Nontender and Nondistended
Skin: Other (diffuse echymosis)
Neuro: Awake, Alert, Oriented, No Motor Deficits and Nonfocal/Grossly Intact
Psych: Calm
[2024-11-24 13:50] LABS: Fibrinogen 549 MG/DL (199-459)
[2024-11-24 15:06] VITALS: BP 118/70
[2024-11-24] MEDS: TYLENOL 650 MG PO (16:18)
[2024-11-24 19:00] VITALS: BP 108/52
[2024-11-24 23:00] VITALS: BP 106/49
[2024-11-25 03:00] VITALS: BP 116/54
[2024-11-25 05:10] VITALS: BMI 23.4
[2024-11-25 06:10] LABS: Hematocrit 28.2 % (37.0-47.0); Hemoglobin 9.3 g/dL (12.0-16.0); Mean Corp Hgb Conc. 33.0 g/dL (33.0-37.0); Mean Corpuscular Volume 86.0 fL (81.0-99.0); Platelet Count 28 10^3/uL (130-400); Red Cell Dist. Width 14.9 % (11.5-14.5)
[2024-11-25 06:38] LABS: ALT (SGPT) 45 U/L (0-35); AST (SGOT) 69 U/L (14-36); Albumin 2.8 g/dl (3.5-5.0); Alkaline Phosphatase 61 U/L (38-126); Blood Urea Nitrogen 12 mg/dl (7-17); Calcium 8.2 mg/dl (8.4-10.2); Carbon Dioxide 28 mmol/L (22-30); Chloride 105 mmol/L (98-107); Estimated Creatinine Clearance 51 ml/min; Glucose 106 mg/dl (70-99); LDH 609 U/L (120-246); Potassium 2.8 mmol/L (3.5-5.1); Sodium 136 mmol/L (135-145); Total Protein 5.2 g/dl (6.3-8.2); eGFR > 60.00
--- NOTE | 2024-11-25 06:41 | W.PN.ONC2 ---
Today's Communication / Plan
-
daily CBC
babesiosis per ID
Impression
Impression
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
- Thrombocytopenia -no evidence of acute DIC, direct antibody platelets are negative
- History of recent tick bites
- Splenic abnormality
Plan
Plan
Babesiosis
- managing as per ID recommendations: Azithromycin 500 mg IV every 24 hours and atovaquone 750 mg p.o. every 12 hours
Thrombocytopenia
Hemolysis
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
- Antiphospholipid antibody pending
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
- Consider transfusion for active bleeding or<20K
Will continue to follow with you.
Subjective/Objective
Chief Complaint
Subjective
no new complaints
denies bleeding
LUQ pain
Vital Signs:
Vital Signs
Temp Pulse Resp BP Pulse Ox
98.7 F 74 16 116/54 93
11/25/24 03:00 11/25/24 03:00 11/25/24 03:00 11/25/24 03:00 11/25/24 03:00
Lab Results:
Laboratory Data
WBC 4.7 10^3/uL (4.8-10.8) L 11/25/24 05:55
Hgb 9.3 g/dL (12.0-16.0) L 11/25/24 05:55
Plt Count 28 10^3/uL (130-400) L* 11/25/24 05:55
PT 14.4 Sec (11.4-14.6) 11/23/24 08:36
INR 1.07 11/23/24 08:36
APTT 34.0 Sec (23.4-35.0) 11/23/24 08:36
eGFR > 60.00 11/25/24 05:55
Physical Exam
HEENT: Moist Mucous Membranes; No Jaundice
Pulmonary: Other (unlabored)
GI: Soft and Other (LUQ TTP)
Extremities: Pulses Present
[2024-11-25 06:51] LABS: Absolute Neutrophils -Man Diff 3.1 10^3/uL (1.4-6.5); Anisocytosis 1+; Normal RBC Morphology No; Platelets Checked Yes; Total Cells Counted 100
[2024-11-25 07:22] VITALS: BP 112/55
[2024-11-25] MEDS: MEPRON SUSPENSION 750 MG PO ×2 (08:55→20:30)
[2024-11-25] MEDS: LEXAPRO 10 MG PO (08:55)
[2024-11-25 11:04] VITALS: BP 116/66
[2024-11-25] MEDS: ZITHROMAX INFUSION 250 IV (12:14)
[2024-11-25] MEDS: FLUSH (NSS) 2 FLUSH IV (12:15)
--- NOTE | 2024-11-25 13:06 | W.PN.HOSP.TC ---
Today's Communication/Plan
-
rx of babesiosis per ID
replete K
monitor QTc
f/u Plt/hbg
Assessment / Plan
Assessment / Plan
CT a/p
New mild splenomegaly. 5 x 4 cm sheetlike area of low attenuation within the spleen extending peripherally. Most likely differential diagnostic possibilities would be a splenic infarct or laceration with small volume perisplenic fluid/edema. Mild
hepatomegaly.
Prior cholecystectomy, appendectomy and apparent hysterectomy. No biliary tract dilatation.
Bilateral subcentimeter low-attenuation renal lesions too small to characterize. 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 No findings to suggest obstructive uropathy bilaterally.
Prior gastric surgery/surgery at the gastroesophageal junction. Some right colonic fluid and small bowel fluid nonspecific. Suggest correlation for any signs/symptoms of enteritis. No intestinal obstruction or free air.

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 repeat showing decreased parasite burden to 0.9%. Currently on regimen of atovaquone and azithromycin, ID help appreciated. QTc of 435 ms today.
2. Thrombocytopenia - further testing held at this point, if not improved will need require further hematological testing to r/o other causes. Platelet count remains stable close to 28k, no bleeding diathesis.
3. Transaminitis/Hepato- splenomegaly - from babesiosis. avoid hepato-toxic medication as possible
4. Questionable splenic infarct - GS evaluated, no indication for any further intervention needed. continue rx of underlying babesiosis
5. Normocytic anemia - monitor, expect some intravascular hemolysis related drop.
6. Hypokalemia - replace with 40meq K
Full code
Anticipated Discharge: 24 - 48 hours
Subjective/Interval History
-
Date of Service: November 25, 2024
Denies of having any issues overnight
no new problems
Objective Data
-
Labs:
Laboratory Results
11/25/24
05:55
WBC 4.7 L
Hgb 9.3 L
Hct 28.2 L
Plt Count 28 L*
Sodium 136
Potassium 2.8 L
Chloride 105
Carbon Dioxide 28
BUN 12
Creatinine 0.4 L
Glucose 106 H
Calcium 8.2 L
Total Bilirubin 1.3
AST 69 H
ALT 45 H
Alkaline Phosphatase 61
Vital Signs:
Vital Signs
Temp Pulse Resp BP Pulse Ox
98.9 F 91 17 116/66 92
11/25/24 11:04 11/25/24 11:04 11/25/24 11:04 11/25/24 11:04 11/25/24 11:04
I&O
11/24/24 11/25/24 11/26/24
06:59 06:59 06:59
Intake Total 1260 / 1260 480 / 480
Balance 1260 / 1260 480 / 480
Review of Systems
-
Respiratory: Reports No Symptoms
Cardiac: Reports No Symptoms
Abdomen/GI: Reports No Symptoms
Physical Exam
-
General: No Apparent Distress and Comfortable
HEENT: Negative Oxygen
Respiratory: Clear to Auscultation
Cardiac: Regular Rhythm and S1/S2; Negative Murmur or Rub
GI: Soft, Nontender and Nondistended
Skin: Other (diffuse echymosis)
Neuro: Awake, Alert, Oriented, No Motor Deficits and Nonfocal/Grossly Intact
Psych: Calm
--- NOTE | 2024-11-25 13:28 | W.PN.ID1 ---
Date of Service
Date of Service: November 25, 2024
Today's Communication
add doxy to azithromycin and atovaquone.
Assessment / Plan
Acute babesiosis
- Initial parasite load at 3.2%
- subsequent parasitemia 1.7% -> 0.95%
Fevers resolved
Fatigue
Acute thrombocytopenia due to babesia
Mild transaminitis
Anemia
TIA
Intracranial hemorrhage
HTN
Crohn's disease (not on medication)
Nephrolithiasis
Recommendations:
Continue therapy for Babesia with Azithromycin 500 mg q q24h (d#3) and atovaquone 750 mg p.o. q12h (d#3).
Can transition IV azithromycin to po 500mg daily.
Daily blood parasite smears to assess parasite load until negative.
Follow LDH.
Monitor white count and temperature curve.
Anaplasma / ehrlichia PCR pending.
Lyme screen presumably positive, relfex WB pending
Start empiric doxycycline 100mg po bid for suspected co-infection.
Continue supportive care.
����������������������������������������������������������
Chief Complaint
-: Other (Babesiosis)
Subjective / Review of Systems
Less tired.
Vital Signs / Physical Exam
Vital Signs
Vital Signs
Temp Pulse Resp BP Pulse Ox
98.9 F 91 17 116/66 92
11/25/24 11:04 11/25/24 11:04 11/25/24 11:04 11/25/24 11:04 11/25/24 11:04
Physical Exam
Constitutional: No Acute Distress and Comfortable
Cardiovascular: Regular Rate and S1/S2
Pulmonary: Clear
Gastrointestinal: Soft, Non Tender, Non Distended and Normal Bowel Sounds
Genito-Urinary: Negative CVA Tenderness
Neurological: AO x 3
Objective Data
Lab Data
Lab Results
11/25/24 05:55
11/25/24 05:55
PT 14.4 Sec (11.4-14.6) 11/23/24 08:36
INR 1.07 11/23/24 08:36
APTT 34.0 Sec (23.4-35.0) 11/23/24 08:36
Estimated Creat Clear 51 ml/min 11/25/24 05:55
Lactic Acid 1.0 mmol/L (0.7-2.0) 11/22/24 19:12
Total Bilirubin 1.3 mg/dl (0.2-1.3) 11/25/24 05:55
AST 69 U/L (14-36) H 11/25/24 05:55
ALT 45 U/L (0-35) H 11/25/24 05:55
Alkaline Phosphatase 61 U/L (38-126) 11/25/24 05:55
Most recent labs reviewed.
Micro Results:
11/25/24 05:55 Blood Parasites Smear - Final
Blood/Venous Babesia species
11/24/24 11:01 Blood Parasites Smear - Final
Blood/Venous Babesia species
11/23/24 02:20 Blood Parasites Smear - Final
Blood/Venous Babesia species
Imaging:
11/23/2024 CT abdomen/pelvis with contrast: New mild splenomegaly. There is a 5 x 4 cm sheetlike area of low-attenuation with a differential including infarction or laceration. Mild thyromegaly noted. Prior cholecystectomy, appendectomy and
apparent hysterectomy. No biliary tract dilatation. Please see full dictation for additional detail.
[2024-11-25] MEDS: KCL 40 MEQ PO (13:49)
[2024-11-25 15:05] VITALS: BP 108/58
[2024-11-25 19:00] VITALS: BP 118/56
[2024-11-25] MEDS: VIBRAMYCIN 100 MG PO (20:30)
[2024-11-25 23:00] VITALS: BP 120/62
[2024-11-26 03:00] VITALS: BP 106/47
[2024-11-26 05:19] LABS: ALT (SGPT) 54 U/L (0-35); AST (SGOT) 83 U/L (14-36); Albumin 2.7 g/dl (3.5-5.0); Alkaline Phosphatase 65 U/L (38-126); Blood Urea Nitrogen 12 mg/dl (7-17); Calcium 8.5 mg/dl (8.4-10.2); Carbon Dioxide 27 mmol/L (22-30); Chloride 106 mmol/L (98-107); Estimated Creatinine Clearance 51 ml/min; Glucose 107 mg/dl (70-99); Potassium 3.2 mmol/L (3.5-5.1); Sodium 136 mmol/L (135-145); Total Protein 5.1 g/dl (6.3-8.2); eGFR > 60.00
[2024-11-26 06:00] VITALS: BMI 23.4
[2024-11-26 07:00] VITALS: BP 119/72
[2024-11-26] MEDS: MEPRON SUSPENSION 750 MG PO ×2 (08:19→20:00)
[2024-11-26] MEDS: VIBRAMYCIN 100 MG PO ×2 (08:19→20:00)
[2024-11-26] MEDS: ZITHROMAX 500 MG PO (08:19)
[2024-11-26] MEDS: LEXAPRO 10 MG PO (08:19)
[2024-11-26 08:21] LABS: Hematocrit 28.1 % (37.0-47.0); Hemoglobin 9.1 g/dL (12.0-16.0); Mean Corp Hgb Conc. 32.4 g/dL (33.0-37.0); Mean Corpuscular Volume 87.3 fL (81.0-99.0); Platelet Count 35 10^3/uL (130-400); Red Cell Dist. Width 15.0 % (11.5-14.5)
[2024-11-26] MEDS: KCL 40 MEQ PO (08:30)
--- NOTE | 2024-11-26 10:30 | W.PN.ID1 ---
Date of Service
Date of Service: November 26, 2024
Today's Communication
Continue azithro, atovaquone, doxy.
Assessment / Plan
Acute babesiosis
- Initial parasite load at 3.2%
- subsequent parasitemia 1.7% -> 0.95% -> 0.2%
Fevers resolved
Fatigue
Acute thrombocytopenia due to babesia
Mild transaminitis
Anemia
TIA
Intracranial hemorrhage
HTN
Crohn's disease (not on medication)
Nephrolithiasis
Recommendations:
Continue therapy for Babesia with Azithromycin 500 mg po q q24h (d#4) and atovaquone 750 mg p.o. q12h (d#4).
Daily blood parasite smears to assess parasite load until negative.
Follow LDH.
Monitor white count and temperature curve.
Anaplasma / ehrlichia PCR pending.
Lyme screen presumably positive, relfex WB pending
Continue empiric doxycycline 100mg po bid (d2) for suspected co-infection.
Continue supportive care.
����������������������������������������������������������
Chief Complaint
-: Other (Babesiosis)
Subjective / Review of Systems
No complaints today.
Vital Signs / Physical Exam
Vital Signs
Vital Signs
Temp Pulse Resp BP Pulse Ox
97.9 F 72 16 119/72 92
11/26/24 07:00 11/26/24 07:00 11/26/24 07:00 11/26/24 07:00 11/26/24 07:00
Physical Exam
Constitutional: No Acute Distress and Comfortable
Cardiovascular: Regular Rate and S1/S2
Pulmonary: Clear
Gastrointestinal: Soft, Non Tender, Non Distended and Normal Bowel Sounds
Genito-Urinary: Negative CVA Tenderness
Neurological: AO x 3
Objective Data
Lab Data
Lab Results
11/26/24 04:43
11/26/24 04:43
PT 14.4 Sec (11.4-14.6) 11/23/24 08:36
INR 1.07 11/23/24 08:36
APTT 34.0 Sec (23.4-35.0) 11/23/24 08:36
Estimated Creat Clear 51 ml/min 11/26/24 04:43
Lactic Acid 1.0 mmol/L (0.7-2.0) 11/22/24 19:12
Total Bilirubin 1.2 mg/dl (0.2-1.3) 11/26/24 04:43
AST 83 U/L (14-36) H 11/26/24 04:43
ALT 54 U/L (0-35) H 11/26/24 04:43
Alkaline Phosphatase 65 U/L (38-126) 11/26/24 04:43
Most recent labs reviewed.
Micro Results:
11/26/24 04:43 Blood Parasites Smear - Final
Blood/Venous Babesia species
11/25/24 05:55 Blood Parasites Smear - Final
Blood/Venous Babesia species
11/24/24 11:01 Blood Parasites Smear - Final
Blood/Venous Babesia species
11/23/24 02:20 Blood Parasites Smear - Final
Blood/Venous Babesia species
Imaging:
11/23/2024 CT abdomen/pelvis with contrast: New mild splenomegaly. There is a 5 x 4 cm sheetlike area of low-attenuation with a differential including infarction or laceration. Mild thyromegaly noted. Prior cholecystectomy, appendectomy and
apparent hysterectomy. No biliary tract dilatation. Please see full dictation for additional detail.
[2024-11-26 11:01] VITALS: BP 105/58
--- NOTE | 2024-11-26 12:44 | W.PN.HOSP.TC ---
Today's Communication/Plan
-
f/u hbg/plt
lyme rx per ID
QTc 450ms today, monitor
Assessment / Plan
Assessment / Plan
CT a/p
New mild splenomegaly. 5 x 4 cm sheetlike area of low attenuation within the spleen extending peripherally. Most likely differential diagnostic possibilities would be a splenic infarct or laceration with small volume perisplenic fluid/edema. Mild
hepatomegaly.
Prior cholecystectomy, appendectomy and apparent hysterectomy. No biliary tract dilatation.
Bilateral subcentimeter low-attenuation renal lesions too small to characterize. 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 No findings to suggest obstructive uropathy bilaterally.
Prior gastric surgery/surgery at the gastroesophageal junction. Some right colonic fluid and small bowel fluid nonspecific. Suggest correlation for any signs/symptoms of enteritis. No intestinal obstruction or free air.

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 repeat showing decreased parasite burden to 0.9 > 0.2 %. Currently on regimen of atovaquone and azithromycin, ID help appreciated. QTc of 435 ms today.
2. Lyme's disease -Lyme serology positive. Patient started on doxycycline as well
3. Thrombocytopenia - further testing held at this point, likely from babesiosis. Platelet count slowly improving and 35K today
4. Transaminitis/Hepato- splenomegaly - from babesiosis. avoid hepato-toxic medication as possible
4. Questionable splenic infarct - GS evaluated, no indication for any further intervention needed. continue rx of underlying babesiosis
5. Normocytic anemia - monitor, expect some intravascular hemolysis related drop.
6. Hypokalemia - replace prn
Full code
Anticipated Discharge: 24 - 48 hours
Subjective/Interval History
-
Date of Service: November 26, 2024
Remains afebrile
Left upper quadrant abdominal pain better
Objective Data
-
Labs:
Laboratory Results
11/26/24
04:43
WBC 4.8
Hgb 9.1 L
Hct 28.1 L
Plt Count 35 L D
Sodium 136
Potassium 3.2 L
Chloride 106
Carbon Dioxide 27
BUN 12
Creatinine 0.5 L
Glucose 107 H
Calcium 8.5
Total Bilirubin 1.2
AST 83 H
ALT 54 H
Alkaline Phosphatase 65
Vital Signs:
Vital Signs
Temp Pulse Resp BP Pulse Ox
98.5 F 77 16 105/58 94
11/26/24 11:01 11/26/24 11:01 11/26/24 11:01 11/26/24 11:01 11/26/24 11:01
I&O
11/25/24 11/26/24 11/27/24
06:59 06:59 06:59
Intake Total 480 / 480 370 / 370
Output Total 480 / 480
Balance 480 / 480 370 / 370 -480 / -480
Review of Systems
-
Respiratory: Reports No Symptoms
Cardiac: Reports No Symptoms
Abdomen/GI: Reports No Symptoms
Physical Exam
-
General: No Apparent Distress and Comfortable
HEENT: Negative Oxygen
Respiratory: Clear to Auscultation
Cardiac: Regular Rhythm and S1/S2; Negative Murmur or Rub
GI: Soft, Nontender and Nondistended
Skin: Other (diffuse echymosis)
Neuro: Awake, Alert, Oriented, No Motor Deficits and Nonfocal/Grossly Intact
Psych: Calm
[2024-11-26 15:00] VITALS: BP 104/57
[2024-11-26 19:00] VITALS: BP 120/60
[2024-11-26] MEDS: TUMS CHEWABLE TABLET 200 MG PO (20:42)
[2024-11-26 23:00] VITALS: BP 109/51
[2024-11-27 03:00] VITALS: BP 107/55
[2024-11-27 03:49] VITALS: BMI 23.3
[2024-11-27 06:23] LABS: Hematocrit 27.4 % (37.0-47.0); Hemoglobin 8.8 g/dL (12.0-16.0); Mean Corp Hgb Conc. 32.1 g/dL (33.0-37.0); Mean Corpuscular Volume 87.3 fL (81.0-99.0); Platelet Count 62 10^3/uL (130-400); Red Cell Dist. Width 15.1 % (11.5-14.5)
[2024-11-27 07:01] LABS: ALT (SGPT) 61 U/L (0-35); AST (SGOT) 77 U/L (14-36); Albumin 2.7 g/dl (3.5-5.0); Alkaline Phosphatase 61 U/L (38-126); Blood Urea Nitrogen 12 mg/dl (7-17); Calcium 8.5 mg/dl (8.4-10.2); Carbon Dioxide 28 mmol/L (22-30); Chloride 107 mmol/L (98-107); Estimated Creatinine Clearance 51 ml/min; Glucose 93 mg/dl (70-99); Potassium 3.4 mmol/L (3.5-5.1); Sodium 137 mmol/L (135-145); Total Protein 5.1 g/dl (6.3-8.2); eGFR > 60.00
[2024-11-27 07:19] VITALS: BP 117/51
[2024-11-27] MEDS: LEXAPRO 10 MG PO (08:52)
[2024-11-27] MEDS: ZITHROMAX 500 MG PO (08:52)
[2024-11-27] MEDS: MEPRON SUSPENSION 750 MG PO (08:52)
[2024-11-27] MEDS: VIBRAMYCIN 100 MG PO (08:52)
--- NOTE | 2024-11-27 09:01 | W.PN.ONC ---
Today's Communication / Plan
-
Babesiosis
- managing as per ID recommendations: Azithromycin 500 mg IV every 24 hours and atovaquone 750 mg p.o. every 12 hours
Suspected Lyme co-infection
- Western blot pending
- managed as per ID recommendations: doxycycline 100mg po q 12 hours
Thrombocytopenia
Hemolysis
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
- Consider transfusion for active bleeding or<20K
- hgb 8.8, plt 62
Will continue to follow while patient is admitted.
Impression
Impression
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
- Thrombocytopenia -no evidence of acute DIC, direct antibody platelets are negative, plt 62 today
- History of recent tick bites
- Splenic abnormality
Suspected Lyme co-infection
- western blot pending
Plan
Plan
Babesiosis
- managing as per ID recommendations: Azithromycin 500 mg IV every 24 hours and atovaquone 750 mg p.o. every 12 hours
Suspected Lyme co-infection
- Western blot pending
- managed as per ID recommendations: doxycycline 100mg po q 12 hours
Thrombocytopenia
Hemolysis
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
- Consider transfusion for active bleeding or<20K
- hgb 8.8, plt 62
Will continue to follow while patient is admitted.
Subjective/Objective
Subjective/Objective
Patient seen at the bedside this morning. She is doing okay, but would like to get out of bed and move around. She complains of fatigue and a headache. She denies all other ROS.
Physical Exam
General: not in acute distress, AAOx3
Cardiovascular: RRR
Respiratory: normal breath sounds
Abdomen: nontender, normal bowel sounds
Extremeties: no edema, pulses present B/L LEs
Vital Signs:
Vital Signs
Temp Pulse Resp BP Pulse Ox
98.1 F 66 16 117/51 94
11/27/24 07:19 11/27/24 07:19 11/27/24 07:19 11/27/24 07:19 11/27/24 07:19
Lab Results:
Laboratory Data
WBC 5.9 10^3/uL (4.8-10.8) 11/27/24 05:50
Hgb 8.8 g/dL (12.0-16.0) L 11/27/24 05:50
Plt Count 62 10^3/uL (130-400) L D 11/27/24 05:50
PT 14.4 Sec (11.4-14.6) 11/23/24 08:36
INR 1.07 11/23/24 08:36
APTT 34.0 Sec (23.4-35.0) 11/23/24 08:36
eGFR > 60.00 11/27/24 05:50
--- NOTE | 2024-11-27 10:12 | W.PN.ID1 ---
Date of Service
Date of Service: November 27, 2024
Today's Communication
Continue antibiotics.
Assessment / Plan
Acute babesiosis
- Initial parasite load at 3.2%
- subsequent parasitemia 1.7% -> 0.95% -> 0.2%
Fevers resolved
Fatigue
Acute thrombocytopenia due to babesia
Mild transaminitis
Anemia
TIA
Intracranial hemorrhage
HTN
Crohn's disease (not on medication)
Nephrolithiasis
Recommendations:
Continue therapy for Babesia with Azithromycin 500 mg po q q24h (d#5) and atovaquone 750 mg p.o. q12h (d#5) to complete 5 more days.
Daily blood parasite smears to assess parasite load until negative. (today's is pending)
Monitor white count and temperature curve.
Anaplasma / ehrlichia PCR negative
Lyme screen presumably positive, relfex WB pending
Continue empiric doxycycline 100mg po bid (d#3 of ) for suspected co-infection.
Continue supportive care.
����������������������������������������������������������
Chief Complaint
-: Other (Babesiosis)
Subjective / Review of Systems
Patient seen and examined. Reports feeling overall better, but fatigued
Review of Systems: No Fever and No Chills
Vital Signs / Physical Exam
Vital Signs
Vital Signs
Temp Pulse Resp BP Pulse Ox
98.1 F 66 16 117/51 94
11/27/24 07:19 11/27/24 07:19 11/27/24 07:19 11/27/24 07:19 11/27/24 07:19
Physical Exam
Constitutional: No Acute Distress and Comfortable
Cardiovascular: Regular Rate and S1/S2
Pulmonary: Clear
Gastrointestinal: Soft, Non Tender, Non Distended and Normal Bowel Sounds
Genito-Urinary: Negative CVA Tenderness
Neurological: AO x 3
Objective Data
Lab Data
Lab Results
11/27/24 05:50
11/27/24 05:50
PT 14.4 Sec (11.4-14.6) 11/23/24 08:36
INR 1.07 11/23/24 08:36
APTT 34.0 Sec (23.4-35.0) 11/23/24 08:36
Estimated Creat Clear 51 ml/min 11/27/24 05:50
Lactic Acid 1.0 mmol/L (0.7-2.0) 11/22/24 19:12
Total Bilirubin 1.0 mg/dl (0.2-1.3) 11/27/24 05:50
AST 77 U/L (14-36) H 11/27/24 05:50
ALT 61 U/L (0-35) H 11/27/24 05:50
Alkaline Phosphatase 61 U/L (38-126) 11/27/24 05:50
Most recent labs reviewed.
Micro Results:
11/27/24 05:50 Blood Parasites Smear - Pending
Blood/Venous
11/26/24 04:43 Blood Parasites Smear - Final
Blood/Venous Babesia species
11/25/24 05:55 Blood Parasites Smear - Final
Blood/Venous Babesia species
11/24/24 11:01 Blood Parasites Smear - Final
Blood/Venous Babesia species
11/23/24 02:20 Blood Parasites Smear - Final
Blood/Venous Babesia species
Imaging:
11/23/2024 CT abdomen/pelvis with contrast: New mild splenomegaly. There is a 5 x 4 cm sheetlike area of low-attenuation with a differential including infarction or laceration. Mild thyromegaly noted. Prior cholecystectomy, appendectomy and
apparent hysterectomy. No biliary tract dilatation. Please see full dictation for additional detail.
[2024-11-27 11:09] VITALS: BP 110/59
--- NOTE | 2024-11-27 12:16 | W.PN.HOSP.TC ---
Addendum entered and electronically signed by Ranjith Acevedo MD 11/27/24 13:45:
pancytopenia
Original Note:
Today's Communication/Plan
-
dc to home later today
Assessment / Plan
Assessment / Plan
CT a/p
New mild splenomegaly. 5 x 4 cm sheetlike area of low attenuation within the spleen extending peripherally. Most likely differential diagnostic possibilities would be a splenic infarct or laceration with small volume perisplenic fluid/edema. Mild
hepatomegaly.
Prior cholecystectomy, appendectomy and apparent hysterectomy. No biliary tract dilatation.
Bilateral subcentimeter low-attenuation renal lesions too small to characterize. 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 No findings to suggest obstructive uropathy bilaterally.
Prior gastric surgery/surgery at the gastroesophageal junction. Some right colonic fluid and small bowel fluid nonspecific. Suggest correlation for any signs/symptoms of enteritis. No intestinal obstruction or free air.
Assessment:
Acute babesiosis
- parasite load on today's CBC undetectable
- Azithromycin 500 mg po q q24h (d#5) and atovaquone 750 mg p.o. q12h (d#5) - total 10 days per ID
Acute thrombocytopenia due to Babesia
suspected Lyme disease
- continue Doxycycline, total 14 days
Transaminitis/Hepato- splenomegaly - from babesiosis. avoid hepato-toxic medication as possible
Questionable splenic infarct - GS evaluated, no indication for any further intervention needed. continue rx of underlying babesiosis
Normocytic anemia - monitor, expect some intravascular hemolysis related drop.
Hypokalemia - replace prn
More than 30 minutes spent in discharge including
Final examination of the patient
Summarizing hospital stay
Instructions for continuing care to all relevant caregivers
Preparation of discharge records, prescriptions, and referral forms
Total time spent (in minutes): 42
Anticipated Discharge: Today
Subjective/Interval History
-
Date of Service: November 27, 2024
resting comfortably, no complaints at present
Objective Data
-
Labs:
Laboratory Results
11/27/24
05:50
WBC 5.9
Hgb 8.8 L
Hct 27.4 L
Plt Count 62 L D
Sodium 137
Potassium 3.4 L
Chloride 107
Carbon Dioxide 28
BUN 12
Creatinine 0.5 L
Glucose 93
Calcium 8.5
Total Bilirubin 1.0
AST 77 H
ALT 61 H
Alkaline Phosphatase 61
Vital Signs:
Vital Signs
Temp Pulse Resp BP Pulse Ox
97.9 F 77 17 110/59 93
11/27/24 11:09 11/27/24 11:09 11/27/24 11:09 11/27/24 11:09 11/27/24 11:09
I&O
11/26/24 11/27/24 11/28/24
06:59 06:59 06:59
Intake Total 370 / 370 920 / 920
Output Total 480 / 480
Balance 370 / 370 440 / 440
Physical Exam
-
General: No Apparent Distress
HEENT: Normocephalic and Atraumatic
Respiratory: Negative Wheezes
Cardiac: Regular Rhythm and S1/S2
GI: Soft and Nontender
Musculoskeletal: No Edema
Neuro: AO x 3
Psych: Calm
Data Reviewed
-
Total Time Spent with Patient (in minutes): 42
Labs: Labs Reviewed by me
--- NOTE | 2024-11-27 12:27 | W.DS.TRANS ---
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
-
Discharge Instructions:
Discharge Diagnosis/Procedures Acute babesiosis, Acute thrombocytopenia due to
Babesia, suspected Lyme disease
Diet Regular
Activity As tolerated
Bathing Restrictions None
Instructions:
Stand-Alone Forms:
Changes to Home Medications: Yes
Discharge Medications:
DC Medications w/original date entered in [employer]
cyanocobalamin (vitamin B-12) 1,000 mcg tablet (Vitamin B-12) 1,000 mcg PO MOTH Supplement 03/11/23
famotidine 40 mg tablet 40 mg PO HS Gastrointestinal Issue 03/11/23
ferrous sulfate 325 mg (65 mg iron) tablet 325 mg PO DAILY Supplement 03/11/23
simvastatin 20 mg tablet 20 mg PO HS High Cholesterol 03/11/23
Held on 11/27/24. Instructions: until cleared by PCP to resume
aspirin 81 mg tablet,delayed release 81 mg PO DAILY Blood Clot Prevention/Tx 03/31/23
denosumab 60 mg/mL subcutaneous syringe (Prolia) 60 mg SC [id number] 03/31/23
cholecalciferol (vitamin D3) 25 mcg (1,000 unit) tablet (Vitamin D3) 175 mcg PO DAILY Supplement 04/05/23
acetaminophen 500 mg tablet (Tylenol Extra Strength) 1,000 mg PO Q6HPRN PRN fever 11/22/24
calcium carbonate 1,500 mg PO HS Gastrointestinal Issue 11/22/24
calcium carbonate 600 mg PO DAILY Supplement 11/22/24
ciclopirox 1 % shampoo 1 ea topical .3 TIMES A WEEK Skin Issues 11/22/24
escitalopram oxalate 10 mg tablet 10 mg PO DAILY depression/anxiety 11/22/24
guar gum 1 tbsp PO DAILY Supplement 11/22/24
hydrochlorothiazide 12.5 mg tablet 12.5 mg PO DAILY Blood Pressure 11/22/24
hviejnzr-ujzplwz-wlut-lutein tablet 1 tab PO DAILY Supplement 11/22/24
polyethylene glycol 3350 17 gram oral powder packet (Miralax) 17 g PO HS Constipation 11/22/24
magnesium chloride 71.5 mg (magnesium chloride) tablet,delayed release (Slow-Mag) 71.5 mg PO DAILY Supplement 11/23/24
atovaquone 750 mg/5 mL oral suspension 750 mg (5 mL) PO Q12 #55 mL 11/27/24
azithromycin 250 mg tablet 500 mg (2 x 250 mg) PO DAILY #10 tabs 11/27/24
doxycycline hyclate 100 mg capsule 100 mg PO Q12 #16 caps 11/27/24
Home Medication Changes
Statin is on hold
Pending Results: No
Total time spent discharging patient (in min): 42
--- NOTE | 2024-11-27 12:31 | W.DCSUMMARY ---
Discharge Summary
Discharge Data
Date of Admission: 11/23/24
Date of Discharge: 11/27/24
Total time spent discharging patient (in min): 42
-
Pending Results: No
Hospital Course
89 y/o Female presented on 11/23 with 3 days of progressive weakness and fevers. Initial ER workup revealed thrombocytopenia, elevated LFTs and splenic infarct on CT. General surgery evaluated and no surgical intervention advised but did advise
precautions to avoid strenuous activity/risk of trauma to the area for the next 6-8 weeks but regular light activity can be as tolerated. Infectious disease was consulted and a diagnosis of acute babesiosis and suspected lyme disease was made.
Patient was started on Azithromycin, Atovaquone and Doxycycline. on serial CBCs, the parasitic load gradually became undetectable. PAtient was cleared for discharge home by ID on 11/27. Repeat labs were ordered for 1 week from discharge and patient
will follow up with PCP.
Discharge Plan
-
Patient Disposition: Home (Routine Discharge)
Discharge Diagnosis/Procedures: Acute babesiosis, Acute thrombocytopenia due to Babesia, suspected Lyme disease
Condition: Fair
Diet: Regular
Activity: As tolerated
Additional Activity: precautions to avoid strenuous activity/risk of trauma to the area for the next 6-8 weeks but regular light activity can be as tolerated
Bathing Restrictions: None
Referrals:
Marely Milton CRNP [Family Provider, Family Practice] - in one week
Prescriptions:
New
atovaquone 750 mg/5 mL Suspension
750 mg PO Q12 Qty: 55 0RF
Rx Instructions:
x 5 days total. discard remainder. Next dose 11/27 PM
doxycycline hyclate 100 mg Capsule
100 mg PO Q12 Qty: 16 0RF
azithromycin 250 mg Tablet
500 mg PO DAILY Qty: 10 0RF
Continued
famotidine 40 mg Tablet
40 mg PO HS
cyanocobalamin (vitamin B-12) [Vitamin B-12] 1,000 mcg Tablet
1,000 mcg PO MOTH
ferrous sulfate 325 mg (65 mg iron) Tablet
325 mg PO DAILY
aspirin 81 mg Tablet,Delayed Release (Dr/Ec)
81 mg PO DAILY
Prolia 60 mg/mL Syringe
60 mg SC [id number]
cholecalciferol (vitamin D3) [Vitamin D3] 25 mcg (1,000 unit) Tablet
175 mcg PO DAILY
polyethylene glycol 3350 [Miralax] 17 gram Powder In Packet
17 g PO HS
guar gum Packet
1 tbsp PO DAILY
calcium carbonate 600 mg calcium (1,500 mg) Tablet
600 mg PO DAILY
calcium carbonate 500 mg calcium (1,250 mg) Tablet,Chewable
1,500 mg PO HS
gvdxlkcw-oortcio-oqkb-lutein Tablet
1 tab PO DAILY
escitalopram oxalate 10 mg Tablet
10 mg PO DAILY
ciclopirox 1 % Shampoo
1 ea TOPICAL .3 TIMES A WEEK
Patient Comments:
11/22/2024, apply to wet scalp.
hydrochlorothiazide 12.5 mg Tablet
12.5 mg PO DAILY
acetaminophen [Tylenol Extra Strength] 500 mg Tablet
1,000 mg PO Q6HPRN PRN (Reason: fever)
Slow-Mag 71.5 mg tablet,delayed release (DR/EC)
71.5 mg PO DAILY
Held
simvastatin 20 mg Tablet
20 mg PO HS
Hold Instructions: until cleared by PCP to resume
Discharge Orders:
Discharge Patient (As Directed); Ordered 11/27/24
Ordered By: Ranjith Acevedo
Discharge Date and Time
Print Language: PORTUGUESE
[2024-11-27] MEDS: KCL 40 MEQ PO (12:40)
--- NOTE | 2024-11-27 13:03 | PN.CDI ---
CDI
- -
CDI:
Physician Documentation Request
Admit Date: 11/23/24 03:27
Dear Doctor Kristina,
Patient admitted with acute Babesiosis as well as thrombocytopenia.
11/23-11/25 hematology results:
Laboratory Tests
11/23/24 11/24/24 11/25/24
05:14 11:06 05:55
WBC 4.0 L 4.4 L 4.7 L
RBC 3.52 L 3.36 L 3.28 L
Plt Count 27 L* 28 L* 28 L*
Could you please provide a diagnosis that supports the above lab abnormalities and additional evaluation, monitoring and/or treatment rendered:
pancytopenia
Thrombocytopenia only
Other
Use of terms such as suspected, likely, concern for, or probable (associated with a specific diagnosis that is being evaluated, monitored, or treated as if it exists) are acceptable and can be coded in the inpatient setting, when documented at the
time of discharge.
Thank you,
Sil Rae RN, BSN
CDI Specialist
tiger text
Please use your independent medical judgment in providing your response.
[2024-11-27 13:05] VITALS: BP 120/64; PULSE 71; O2SAT 95
--- NOTE | 2024-11-27 13:59 | CM ---
Patient seen at bedside
IMM explained & signed. In chart
PT rec VN
CM consult completed
Discussed options - [facility] - referral placed in [facility]
PLAN: home with [facility]
daughter to transport
[2024-11-27 14:00] VITALS: BP 120/64; PULSE 80; O2SAT 94
--- NOTE | 2024-11-27 14:09 | VNURNOTE ---
Home Health Liaison met with patient at bedside to discuss [facility] nurse/therapy, visits, schedule and homebound status. Patient is agreeable and understands that visits at home will be 2-3 x per week to assess and teach medical management.
Patient is aware that [facility] will contact them for start of care in 1-2 days after discharge from .
[facility] referral accepted in [facility].
--- NOTE | 2024-11-27 14:14 | PTOTSP ---
pt currently requires supervision to no assistance to complete simple ADLs, functional transfers, ambulation. no acute OT needs identified at this time, will sign off.
[2024-11-27 15:00] VITALS: BP 126/67
[2024-11-27 18:54] LABS: Lyme Ab Western Blot IgG Negative (Negative); Lyme Ab Western Blot IgM Negative (Negative)
== END 2024-11-27 15:35 | disposition home health service (06) | DRG 868 ==
LOC: 3 WEST ACU 03:27
PROVIDERS: Hospitalist; Internal Medicine Hematology & Oncology; Nurse Practitioner Acute Care; Student in an Organized Health Care Education/Training Program; ADMITTING PHYSICIAN Internal Medicine; ATTENDING PHYSICIAN Internal Medicine; CONSULT PHYSICIAN Internal Medicine Infectious Disease; EMERGENCY PHYSICIAN Emergency Medicine; FAMILY PHYSICIAN Nurse Practitioner; OTHER PHYSICIAN Internal Medicine Hematology & Oncology; OTHER PHYSICIAN Surgery
DX: B60.00 Babesiosis, unspecified (principal); D61.818 Other pancytopenia; K50.90 Crohn's disease, unspecified, without complications; Z11.52 Encounter for screening for COVID-19; E87.6 Hypokalemia; D69.59 Other secondary thrombocytopenia; A69.20 Lyme disease, unspecified; D59.8 Other acquired hemolytic anemias; F41.9 Anxiety disorder, unspecified; Z79.82 Long term (current) use of aspirin; Z79.899 Other long term (current) drug therapy; Z86.73 Personal history of transient ischemic attack (TIA), and cerebral infarction without residual deficits
CPT/HCPCS: 70450; 74177; 80053; 81003; 81015; 82248; 83010; 83605; 83615; 84443; 85025; 85027; 85045; 85384; 85610; 85730; 86617; 86618; 86880; 87015; 87207; 87468; 87484; 87798; 87811; 93005; 97162; 97166; 99285; Q9967

== ENCOUNTER → 2024-12-22 10:49 | Outpatient (REF) | payer MEDICARE, SELFPAY ==
[2024-12-22 11:34] LABS: Hematocrit 39.5 % (37.0-47.0); Hemoglobin 12.3 g/dL (12.0-16.0); Mean Corp Hgb Conc. 31.1 g/dL (33.0-37.0); Mean Corpuscular Volume 92.3 fL (81.0-99.0); Nucleated Red Blood Cells % 0 %; Platelet Count 202 10^3/uL (130-400); Red Cell Dist. Width 16.0 % (11.5-14.5)
[2024-12-22 14:00] LABS: ALT (SGPT) 34 U/L (0-35); AST (SGOT) 38 U/L (14-36); Albumin 4.4 g/dl (3.5-5.0); Alkaline Phosphatase 64 U/L (38-126); Blood Urea Nitrogen 14 mg/dl (7-17); Calcium 10.1 mg/dl (8.4-10.2); Carbon Dioxide 31 mmol/L (22-30); Chloride 102 mmol/L (98-107); Glucose 93 mg/dl (70-99); Potassium 3.5 mmol/L (3.5-5.1); Sodium 140 mmol/L (135-145); Total Protein 6.9 g/dl (6.3-8.2); eGFR > 60.00
== END ==
LOC: REG 10:49
PROVIDERS: ATTENDING PHYSICIAN Nurse Practitioner
DX: D64.9 Anemia, unspecified (principal); R79.89 Other specified abnormal findings of blood chemistry
CPT/HCPCS: 36415; 80053; 85025